=== PATIENT | male | born 1940 | race Caucasian/White ===

== ENCOUNTER 2019-11-04 14:40 | Outpatient (CLI) | payer MEDICARE, SELFPAY ==
--- NOTE | ~2019-11-04 | US_ITS ---
US scrotum doppler INDICATION: Evaluate for hernia. Testicular pain. TECHNIQUE: Testicular sonogram utilizing grayscale and color Doppler FINDINGS: The testes are normal in size and appearance. No focal lesions are seen. The right testes measures 4.2 x 3.4 x 2.5 cm centimeters, and the left testis measures 4.6 x 2.9 x 2.7 cm cm. There is normal vascular flow to both testes. There is a 1 cm left epididymal cyst. There is no varicocele or hydrocele. No evidence for hernia. IMPRESSION: 1. 1 cm left epididymal cyst. Reviewed, dictated and finalized at location A. UCTION SUPV
== END 2019-11-04 14:41 | disposition home or self-care (01) ==
PROVIDERS: PCP Family Medicine; Visit Provider Physician Assistant
DX: N50.3 Cyst of epididymis (principal); N50.819 Testicular pain, unspecified; R10.31 Right lower quadrant pain; K46.9 Unspecified abdominal hernia without obstruction or gangrene
CPT/HCPCS: 76870; 93976

== ENCOUNTER 2020-03-27 01:35 | Outpatient (CLI) | payer MEDICARE, SELFPAY ==
[2020-03-27 22:44] LABS: SARS-CoV-2 RNA PCR Negative
== END 2020-03-27 01:36 | disposition home or self-care (01) ==
LOC: ANHCOVIDDT 01:36
PROVIDERS: PCP Family Medicine; Visit Provider Internal Medicine Cardiovascular Disease
DX: Z01.812 Encounter for preprocedural laboratory examination (principal); Z11.59 Encounter for screening for other viral diseases
CPT/HCPCS: 87635; C9803; U0003

== ENCOUNTER 2020-04-03 01:21 | Outpatient (CLI) | payer MEDICARE, SELFPAY ==
[2020-04-03 19:25] LABS: SARS-CoV-2 RNA PCR Negative
== END 2020-04-03 01:22 | disposition home or self-care (01) ==
LOC: ANHCOVIDDT 01:21
PROVIDERS: PCP Family Medicine; Visit Provider Internal Medicine Cardiovascular Disease
DX: Z01.818 Encounter for other preprocedural examination (principal); Z11.59 Encounter for screening for other viral diseases
CPT/HCPCS: 87635; C9803; U0003

== ENCOUNTER 2020-04-05 05:30 | Day surgery (SDC) | payer MEDICARE, SELFPAY ==
[2020-03-28 18:45] VITALS: BMI 30.8
[2020-04-05] VITALS (7 sets, daily range): BP systolic 112–128; BP diastolic 69–85; PULSE 56–88; RESP 9–20; TEMP 36.4; O2SAT 97–100
--- NOTE | 2020-04-05 06:41 | ECG_ITS ---
Measurements Intervals [place] Rate: 87 P: MT: 0 QRS: -18 QRSD: 90 T: 30 QT: 364 QTc: 438 Interpretive Statements ATRIAL FIBRILLATION VENTRICULAR PREMATURE COMPLEXES ABNORMAL ECG Electronically Signed On 04-05-2020 8:13:07 CDT by Dioni Vaca D.O.
[2020-04-05 07:42] LABS: Anion Gap 12.1 mmol/L (7-16); Blood Urea Nitrogen 26 mg/dL (9-20); Carbon Dioxide 23 mmol/L (22-30); Chloride 107 mmol/L (98-107); Estimated CRCL calculation 55 ml/min; Estimated Glomerular Filt Rate 49; Glucose 105 mg/dL (75-110); Magnesium 2.1 mg/dL (1.6-2.3); Potassium 4.1 mmol/L (3.4-5.0); Sodium 138 mmol/L (137-145)
--- NOTE | 2020-04-05 08:18 | WPDMODSED ---
Moderate Sedation Note-Pt Data Patient Data Allergies Allergy/AdvReac Type Severity Reaction Status Date / Time No Known Allergies Allergy Verified 03/28/20 19:14 Home Medications Medication Instructions Recorded Confirmed Type amlodipine 10 mg tablet 10 mg PO HS 08/19/19 03/28/20 History lisinopril 40 mg tablet 40 mg PO HS 08/19/19 03/28/20 History meclizine 25 mg PO DAILY PRN 09/13/19 03/28/20 History omeprazole 40 mg PO BID 09/13/19 03/28/20 History nystatin 100,000 unit/gram topical 1 applic TOPICAL BID #60 gm 10/21/19 03/28/20 Rx powder apixaban 5 mg tablet 5 mg PO BID #60 tablet 11/03/19 03/28/20 Rx meloxicam 7.5 mg tablet 7.5 mg PO BID #180 tablet 12/27/19 03/28/20 Rx buspirone 15 mg tablet 22.5 mg PO BID #270 tablet 03/26/20 03/28/20 Rx amiodarone 200 mg PO BID 03/28/20 03/28/20 History quetiapine 50 mg PO BID 03/28/20 03/28/20 History Sedation/Anesthesia: No previous sedation/anesthesia problems (including family history). [facility] Past Medical History Medical History Arthritis MAINOR (generalized anxiety disorder) History of basal cell carcinoma Spastic colon Ulcer Surgical History Surgical History History of colonoscopy History of esophagogastroduodenoscopy History of partial colectomy For colon mass Family History Family History Sibling Patient's sister is in good health Father Family history of coronary artery disease Patient's father is in good health Mother Patient's mother is in good health Other Cerebrovascular accident Diabetes mellitus Hypertension Social History Social History Smoking status: Never smoker Second hand tobacco smoke exposure: No Alcohol intake: never Substance use: never Substance use type: does not use Living arrangements: with family Additional living arrangements comments: LIVES W/ Gender identity (if verbalized by the patient): Male Spiritual care concerns: No Mod Sed Physical Exam Physical Exam Pre Procedural Exam: Normal: Appearance, Eyes, Ears, Nose, Neck, Throat, Airway, Lungs, Heart Size, Heart Rate, Heart Rhythm, Neuro Exam, Abdomen, Liver, Kidneys, Spleen, Breasts, Genitalia, Extremities and Skin Hours since solid foods: 8 Hours since liquid intake: 8 Internal Medicine - PN: Obj Da Vital Signs Vital Signs: Vital Signs - 24 hr 04/05/20 07:27 04/05/20 08:10 04/05/20 08:15 Temperature 36.4 C Pulse Rate 85 88 79 Respiratory Rate 12 12 20 Blood Pressure 126/84 128/85 112/77 Pulse Oximetry 100 99 97 Labs CBC & Chem 7: 04/05/20 07:21 Labs: Laboratory Results - last 24 hr 04/05/20 07:21 Sodium 138 Potassium 4.1 Chloride 107 Carbon Dioxide 23 Anion Gap 12.1 BUN 26 H Creatinine 1.40 H Estim Creat Clear Calc 55 Estimated GFR 49 L Glucose 105 Calcium 9.0 Magnesium 2.1 ASA Classification/Sedation ASA Classification/Sedation ASA Class: I Emergent: No Risks: Risks, benefits and alternatives explained and patient/family accepted plan for sedation. Patient re-evaluated immediately prior to sedation.
--- NOTE | 2020-04-05 08:19 | WPDHPUPDATE1 ---
History and Physical Update Update Date/Time: 04/05/20 08:19 History and Physical has been reviewed, including an updated exam of the patient. There are NO changes in the patient's condition. Risks, benefits, and alternatives have been discussed and questions answered. Patient agrees to proceed with procedure.
--- NOTE | 2020-04-05 08:19 | WPDCARDVER ---
Cardioversion Cardioversion Date of procedure: 04/05/20 Procedure: Date of service 04/05/2020 cardioversion for atrial fibrillation Pre-op diagnosis: atrial fibrillation Post-op diagnosis: same Indications: symptomatic atrial fibrillation Description of procedure: after informed consent, cardioversion pads were applied to the chest in anteroposterior fashion. After that moderate sedation was administered and then 200 joules of synchronized electrical cardioversion was delivered successfully converting atrial fibrillation to sinus rhythm. Sedation: moderate sedation that started at 8:11 a.m. and ended at 8:15 a.m. total duration 5 minutes using 3 mg of Versed and 50 mcg of fentanyl. The registered nurse was alisson Garrett. Findings: atrial fibrillation converted with elective cardioversion to sinus rhythm Conclusion: successful conversion
--- NOTE | 2020-04-05 08:20 | ECG_ITS ---
Measurements Intervals [place] Rate: 61 P: 44 [place]: 192 QRS: -28 QRSD: 102 T: 30 QT: 423 QTc: 426 Interpretive Statements SINUS RHYTHM ATRIAL PREMATURE COMPLEX DELAYED PRECORDIAL R/S TRANSITION BORDERLINE ECG Electronically Signed On 04-05-2020 8:45:52 CDT by Dioni Vaca D.O.
--- NOTE | 2020-04-05 10:04 | SUR.PHASEII ---
Reviewed discharge instructions with patient . Patient verbalizes understanding,all questions answered. PIV removed. Patient escorted to vehicle via wheelchair.
== END 2020-04-05 10:05 | disposition home or self-care (01) ==
PROVIDERS: PCP Family Medicine; Visit Provider Internal Medicine Cardiovascular Disease
PROC: 5A2204Z Restoration of Cardiac Rhythm, Single (ICD-10-PCS; principal; 2020-04-05 08:00)
DX: I48.91 Unspecified atrial fibrillation (principal); F41.1 Generalized anxiety disorder; Z79.01 Long term (current) use of anticoagulants
CPT/HCPCS: 36415; 80048; 83735; 92960; 93005; J2250; J3010; J7040

== ENCOUNTER 2020-05-02 11:19 | Outpatient (CLI) | payer MEDICARE, SELFPAY ==
--- NOTE | ~2020-05-02 | XR_ITS ---
EXAMINATION: XR chest 2V EXAM DATE: 05/02/2020 12:29 INDICATION: Generalized weakness. TECHNIQUE: Frontal and lateral projections of the chest obtained and reviewed. Comparison is made to prior examination from 07/06/2018. FINDINGS: The lungs are clear. There are no pleural effusions. The cardiomediastinal silhouette is within normal limits. There is no pneumothorax suspected. Patient has diffuse idiopathic skeletal h yperostosis (DISH). There is aortic arteriosclerosis. IMPRESSION: No acute cardiopulmonary findings. Reviewed, dictated and finalized at location B.
[2020-05-02 12:03] LABS: Basophils Percent Auto 1.1 % (0.2-1.2); Eosinophils Absolute Auto 0.1 K/mm3 (0-0.3); Eosinophils Percent Auto 2.8 % (0-4.4); Hematocrit 46.5 % (42.0-52.0); Hemoglobin 16.2 g/dL (14.0-18.0); Immature Granulocyte Absolute 0.01 K/mm3 (0.00-0.031); Immature Granulocyte Percent A 0.3 % (0-0.5); Lymphocytes Absolute Auto 0.71 K/mm3 (0.9-3.2); Lymphocytes Percent Auto 19.9 % (18.3-44.2); Mean Corpuscular HGB Conc 34.8 g/dl (32-36); Mean Corpuscular Hemoglobin 32.1 pg (26-34); Mean Corpuscular Volume 92.1 fl (80-100); Mean Platelet Volume 9.1 fl (7.4-10.4); Monocytes Absolute Auto 0.4 K/mm3 (0.1-0.6); Monocytes Percent Auto 10.7 % (2.6-8.5); Neutrophils Absolute Auto 2.3 K/mm3 (1.3-6.7); Neutrophils Percent Auto 65.2 % (45.5-73.1); Platelet Count Result 148 k/mm3 (150-375); Red Blood Count 5.05 M/mm3 (4.6-6.20); Red Cell Distribution Width 12.6 % (11.5-14.5); White Blood Count 3.6 K/mm3 (4.5-10.0)
== END 2020-05-02 11:20 | disposition home or self-care (01) ==
LOC: ANHLAB 11:22
PROVIDERS: PCP Family Medicine; Visit Provider Physician Assistant
DX: R06.02 Shortness of breath (principal); R53.83 Other fatigue
CPT/HCPCS: 36415; 71046; 84443; 85025

== ENCOUNTER 2020-05-18 10:12 | Outpatient (CLI) | payer MEDICARE, SELFPAY ==
[2020-05-18 11:19] LABS: Basophils Percent Auto 0.9 % (0.2-1.2); Eosinophils Absolute Auto 0.1 K/mm3 (0-0.3); Eosinophils Percent Auto 2.4 % (0-4.4); Hemoglobin 15.7 g/dL (14.0-18.0); Immature Granulocyte Absolute 0.02 K/mm3 (0.00-0.031); Immature Granulocyte Percent A 0.6 % (0-0.5); Mean Corpuscular HGB Conc 34.1 g/dl (32-36); Mean Corpuscular Hemoglobin 31.8 pg (26-34); Mean Corpuscular Volume 93.3 fl (80-100); Mean Platelet Volume 9.5 fl (7.4-10.4); Monocytes Absolute Auto 0.3 K/mm3 (0.1-0.6); Monocytes Percent Auto 9.6 % (2.6-8.5); Neutrophils Absolute Auto 2.2 K/mm3 (1.3-6.7); Neutrophils Percent Auto 65.5 % (45.5-73.1); Platelet Count Result 153 k/mm3 (150-375); Red Blood Count 4.93 M/mm3 (4.6-6.20); Red Cell Distribution Width 12.9 % (11.5-14.5); White Blood Count 3.3 K/mm3 (4.5-10.0)
[2020-05-18 13:06] LABS: Iron 191 ug/dL (49-181)
[2020-05-18 13:11] LABS: Alanine Aminotransferase 21 U/L (4-50); Albumin Level 4.5 g/dL (3.5-5.1); Alkaline Phosphatase 63 U/L (38-126); Anion Gap 9 mmol/L (8-16); Aspartate Amino Transferase 29 U/L (17-59); Blood Urea Nitrogen 36 mg/dL (9-20); Calcium 9.2 mg/dL (8.4-10.2); Carbon Dioxide 26 mmol/L (22-30); Chloride 105 mmol/L (98-107); Estimated Glomerular Filt Rate 39; Glucose 96 mg/dL (75-110); Lactate Dehydrogenase 436 U/L (313-618); Sodium 140 mmol/L (137-145)
[2020-05-18 13:16] LABS: Percent Iron Saturation 55 % (20-50)
[2020-05-18 14:13] LABS: Folic Acid 12.9 ng/mL (2.76->20)
== END 2020-05-18 10:13 | disposition home or self-care (01) ==
PROVIDERS: PCP Family Medicine; Visit Provider Internal Medicine Hematology & Oncology
DX: D72.819 Decreased white blood cell count, unspecified (principal); R06.02 Shortness of breath; I12.9 Hypertensive chronic kidney disease with stage 1 through stage 4 chronic kidney disease, or unspecified chronic kidney disease; N18.3 Chronic kidney disease, stage 3 (moderate); I48.91 Unspecified atrial fibrillation
CPT/HCPCS: 36415; 80053; 82607; 82728; 82746; 83540; 83550; 83615; 84443; 85025; 86038

== ENCOUNTER 2020-05-24 09:21 | Outpatient (CLI) | payer MEDICARE, SELFPAY ==
--- NOTE | ~2020-05-24 | US_ITS ---
EXAMINATION: US abdomen complete EXAM DATE: 05/24/2020 10:03 INDICATION: Leukopenia. TECHNIQUE: Multiple grayscale and Doppler images of the complete abdomen were obtained (by a technolo gist who performed the scan) and subsequently reviewed. Comparison is made to prior examination from 11/08/2017. FINDINGS: The abdominal aorta is normal in caliber. Visualized portion IVC is patent. The pancreatic head a nd body are normal in appearance. The pancreatic tail is not visualized. The liver has normal echogenicity and contour. There are no focal liver lesions identified. There is no evidence of intrahepatic biliary duct dilation. Portal venous flow was seen in the hepatopedal , normal direction and has normal Doppler waveform. Common bile duct measures 4 mm, which is normal. The gallbladder wall is normal in thickness, with ex pected amount of distention. No sonographic evidence of pericholecystic fluid. There is a tiny gall bladder polyp requiring no further follow-up, and unchanged compared to prior study. No cholelithiasi s. Technologist performing exam reports patient did not demonstrate sonographic Scherer's sign. Plea se note that this sign is less reliable in patients who have received pain medication. Right kidney: There is normal contour and echogenicity. There is renal cortical thinning. It measures 11.3 x 5.5 x 5.0 centimeters. There are no focal renal lesions identified. There is no hydronep hrosis. Left kidney: There is normal contour and echogenicity. There is renal cortical thinning. It measures 12.9 x 6.7 x 6.1 centimeters. There are no focal renal lesions identified. There is no hydroneph rosis. The spleen measures 12.2 centimeters and is morphologically normal. IMPRESSION: 1. Bilateral renal cortical thinning, atrophy. 2. Tiny gallbladder polyp unchanged. Reviewed, dictated and finalized at location A.
== END 2020-05-24 09:22 | disposition home or self-care (01) ==
PROVIDERS: PCP Family Medicine; Visit Provider Internal Medicine Hematology & Oncology
DX: D72.819 Decreased white blood cell count, unspecified (principal); N28.89 Other specified disorders of kidney and ureter; K82.4 Cholesterolosis of gallbladder
CPT/HCPCS: 76700

== ENCOUNTER 2020-06-21 14:28 | Outpatient (CLI) | payer MEDICARE, SELFPAY ==
[2020-06-21 14:45] LABS: Basophils Percent Auto 0.8 % (0.2-1.2); Eosinophils Absolute Auto 0.1 K/mm3 (0-0.3); Eosinophils Percent Auto 1.3 % (0-4.4); Hematocrit 44.2 % (42.0-52.0); Hemoglobin 15.1 g/dL (14.0-18.0); Immature Granulocyte Absolute 0.02 K/mm3 (0.00-0.031); Immature Granulocyte Percent A 0.5 % (0-0.5); Lymphocytes Percent Auto 20.9 % (18.3-44.2); Mean Corpuscular HGB Conc 34.2 g/dl (32-36); Mean Corpuscular Hemoglobin 32.4 pg (26-34); Mean Corpuscular Volume 94.8 fl (80-100); Mean Platelet Volume 8.9 fl (7.4-10.4); Monocytes Absolute Auto 0.4 K/mm3 (0.1-0.6); Monocytes Percent Auto 10.7 % (2.6-8.5); Neutrophils Absolute Auto 2.5 K/mm3 (1.3-6.7); Neutrophils Percent Auto 65.8 % (45.5-73.1); Platelet Count Result 151 k/mm3 (150-375); Red Blood Count 4.66 M/mm3 (4.6-6.20); Red Cell Distribution Width 13.4 % (11.5-14.5); White Blood Count 3.8 K/mm3 (4.5-10.0)
[2020-06-21 16:57] LABS: Iron 157 ug/dL (49-181)
[2020-06-21 16:59] LABS: Alanine Aminotransferase 22 U/L (4-50); Albumin Level 4.4 g/dL (3.5-5.1); Alkaline Phosphatase 54 U/L (38-126); Anion Gap 9 mmol/L (8-16); Aspartate Amino Transferase 26 U/L (17-59); Bilirubin,Total 0.9 mg/dL (0.2-1.3); Blood Urea Nitrogen 43 mg/dL (9-20); Calcium 9.8 mg/dL (8.4-10.2); Carbon Dioxide 28 mmol/L (22-30); Chloride 107 mmol/L (98-107); Estimated Glomerular Filt Rate 39; Glucose 94 mg/dL (75-110); Lactate Dehydrogenase 397 U/L (313-618); Potassium 4.6 mmol/L (3.4-5.0); Sodium 144 mmol/L (137-145)
[2020-06-21 17:08] LABS: Percent Iron Saturation 47 % (20-50)
[2020-06-21 18:04] LABS: Folic Acid 16.5 ng/mL (2.76->20)
== END 2020-06-21 14:29 | disposition home or self-care (01) ==
PROVIDERS: PCP Family Medicine; Visit Provider Internal Medicine Hematology & Oncology
DX: D72.819 Decreased white blood cell count, unspecified (principal); D50.9 Iron deficiency anemia, unspecified; R53.83 Other fatigue
CPT/HCPCS: 36415; 80053; 82607; 82728; 82746; 83540; 83550; 83615; 84443; 85025; 86038

== ENCOUNTER → 2020-09-18 15:25 | Outpatient (CLI) | payer MEDICARE, SELFPAY ==
--- NOTE | ~2020-09-18 | XR_ITS ---
EXAMINATION: XR_CERV2-3V_CR EXAM DATE: 09/18/2020 15:48 INDICATION: Bilateral upper extremity weakness. TECHNIQUE: Cervical spine frontal, lateral, lateral swimmers, and open-mouth odontoid projections. There is no prior study for comparison. FINDINGS: There is mild to moderate diffuse cervical disc disease. Overall moderate cervical arthrop athy. The vertebral bodies are aligned in the AP dimension. There are no acute fractures identified. Paraspinal soft tissue is unremarkable. The odontoid process is intact. The lateral masses of C1 duncan e up with C2. Lung apices are unremarkable. IMPRESSION: 1. Mild to moderate cervical disc disease. 2. Overall moderate arthropathy. Reviewed, dictated and finalized at location A. RANCE ADMINISTRATIVE ASSISTANT
== END ==
PROVIDERS: PCP Family Medicine; Visit Provider Family Medicine
DX: R29.898 Other symptoms and signs involving the musculoskeletal system (principal); M50.80 Other cervical disc disorders, unspecified cervical region; M12.88 Other specific arthropathies, not elsewhere classified, other specified site
CPT/HCPCS: 72040

== ENCOUNTER → 2020-10-23 10:35 | Outpatient (CLI) | payer MEDICARE, SELFPAY ==
--- NOTE | ~2020-10-23 | XR_ITS ---
EXAMINATION: XR chest 2V DATE: 10/23/2020 10:55 INDICATION: Shortness of breath. TECHNIQUE: Frontal and lateral views of the chest were obtained on 3 radiographs. COMPARISON: Chest 2 views 05/02/2020, CT abdomen and pelvis 08/25/2019 FINDINGS: Calcified right lung nodules and calcified right hilar lymph nodes are consistent with old granulomatous disease. No pleural effusion or pneumothorax. The heart size is normal. IMPRESSION: 1. No acute cardiopulmonary disease. Reviewed, dictated and finalized at location A. ERER ASSEMBLY REPAIR
== END ==
PROVIDERS: PCP Family Medicine; Visit Provider Family Medicine
DX: R06.02 Shortness of breath (principal); I48.91 Unspecified atrial fibrillation
CPT/HCPCS: 71046

== ENCOUNTER 2020-12-13 13:27 | Outpatient (CLI) | payer MEDICARE, SELFPAY ==
--- NOTE | 2020-12-14 14:16 | P.PCNPFT_ITS ---
PFT Interpretation This is a pulmonary function test with pre and post-bronchodilator spirometry, plethysmography and diffusing capacity. The test was performed and results interpreted in accordance with the 2019 and 2005 ATS/ERS Task Force guidelines respectively using the Global Lung Function Initiative-2012 reference equations. Patient demonstrated good effort and c ooperation. Reproducibility criteria were met. The quality of the pre bronchodilator spirometry maneuver was Grade A and post bronchodilator spirometry maneuver was Grade A. Findings: Spirometry: There is decreased maximal expiratory airflow at low lung volumes with mildly concave expiratory flow tracing. The pre bronchodilator FVC is 3.91 L, 79% predicted. The pre bronchodilator FEV1 is 2.51 L, 70% predicted. The FEV1: FVC ratio 64%. The post bronchodilator FVC is 3.70 L, representing a 6% decrease. The post bronchodilator FEV1 is 2.62 L, representing a 5% increase. Plethysmography: The total lung capacity is 6.91 L, 81% predicted. Functional residual capacity is 3.47 L, 74% predicted. The residual volume is 3.00 L, 89% predicted. Diffusing capacity: The absolute diffusion capacity is 22.5, 84% predicted. The diffusing capacity corrected for alveolar volume is 3.57, 111% predicted. In comparison to a previous study on 11/01/2015 the post bronchodilator FVC is unchanged from 4.08 L to 3.70 L. The post bronchodilator FEV1 is unchanged from 2.85 L to 2.62 L. The total lung capacity is unchanged from 6.97 L to 6.91 L. The functional residual capacity is unchanged from 3.51 L to 3.47 L. The residual volume is unchanged from 2.62 L to 3.0 L. The diffusing capacity corrected for alveolar volume is unchanged from 3.82 to 3.57. Impression: There is a mild obstructive abnormality without significant improvement after inhaling a single dose of albuterol. The lung volumes are normal. The diffusing capacity is normal. When compared to the prior pulmonary function tests on 11/01/2015 there has been no significant change. PFT Procedure Performed PFT Procedure Performed Spirometry with Pre/Post Bronchodilator Plethysmography (Lung Vol) Diffusing Cap (DLCO)
== END 2020-12-13 13:28 | disposition home or self-care (01) ==
LOC: ANHPFT 13:28
PROVIDERS: PCP Family Medicine; Visit Provider Family Medicine
DX: R06.00 Dyspnea, unspecified (principal); R94.2 Abnormal results of pulmonary function studies
CPT/HCPCS: 94060; 94726; 94729

== ENCOUNTER → 2020-12-31 07:58 | Outpatient (CLI) | payer MEDICARE, SELFPAY ==
--- NOTE | ~2020-12-31 | CT_ITS ---
EXAMINATION: CT diagnostic chest wo con DATE: 12/31/2020 08:33 INDICATION: Dyspnea. TECHNIQUE: Computed tomography (CT) of the chest was performed without intravenous contrast. The dose -length product was 615.96 mGy-cm. Automated exposure control and iterative reconstruction technique were employed. COMPARISON: None FINDINGS: No endobronchial lesions. No pneumothorax. There is left lower lobe atelectasis. No focal a irspace consolidation. Calcified granuloma right lower lobe. No focal airspace consolidation to sugge st pneumonia. No suspicious pulmonary nodules or masses. There is atherosclerosis of the aorta and co ronary arteries. Small hiatal hernia. There are calcified granulomas of the spleen. No significant pl eural or pericardial effusion. There is mild thoracic spondylosis with accentuated kyphosis. No acute osseous abnormality. No focal lytic or blastic lesions. IMPRESSION: 1. No acute abnormality. No findings to account for patient's symptoms. Reviewed, dictated and finalized at location A.
== END ==
PROVIDERS: PCP Family Medicine; Visit Provider Family Medicine
DX: R06.00 Dyspnea, unspecified (principal)
CPT/HCPCS: 71250

== ENCOUNTER 2021-01-31 10:25 | Outpatient (CLI) | payer MEDICARE, SELFPAY ==
[2021-01-31 11:16] LABS: Prothrombin Time 13.3 Seconds (11.1-14.7)
[2021-01-31 11:17] LABS: Partial Thromboplastin Time 26.5 SECONDS (22.3-36.8)
[2021-01-31 11:33] LABS: Anion Gap 7 mmol/L (8-16); Blood Urea Nitrogen 36 mg/dL (9-20); Calcium 9.1 mg/dL (8.4-10.2); Carbon Dioxide 26 mmol/L (22-30); Chloride 107 mmol/L (98-107); Estimated Glomerular Filt Rate 39; Glucose 105 mg/dL (75-110); Potassium 4.6 mmol/L (3.4-5.0); Sodium 140 mmol/L (137-145)
== END 2021-01-31 10:26 | disposition home or self-care (01) ==
PROVIDERS: Anesthesiology; PCP Family Medicine; Visit Provider Urology
DX: Z01.818 Encounter for other preprocedural examination (principal); N40.0 Benign prostatic hyperplasia without lower urinary tract symptoms; N18.30 Chronic kidney disease, stage 3 unspecified
CPT/HCPCS: 36415; 80048; 85610; 85730; 87077; 87086; 87088

== ENCOUNTER 2021-02-07 10:30 | Outpatient (CLI) | payer MEDICARE, SELFPAY ==
--- NOTE | 2021-02-07 11:30 | NEURO_ITS ---
Impression: # Complains of numbness of lower extremities. # Fairly normal nerve conduction velocities with amplitude drop. # Needle/EMG not neurogenic. # Higher involvement needs to be ruled out. Nerve Conduction Studies Anti Sensory Summary Table Stim Site NR Peak (ms) P-T Amp (?V) Site1 Site2 Delta-P (ms) Dist (cm) Sung (m/s) Left Sup Fibular Anti Sensory (Ant Lat Mall) 14 cm 3.5 5.7 14 cm Ant Lat Mall 3.5 16.0 46 Right Sup Fibular Anti Sensory (Ant Lat Mall) 14 cm 4.7 5.2 14 cm Ant Lat Mall 4.7 16.0 34 Left Sural Anti Sensory (Lat Mall) Calf 3.9 4.2 Calf Lat Mall 3.9 16.0 41 Right Sural Anti Sensory (Lat Mall) Calf 4.0 16.8 Calf Lat Mall 4.0 16.0 40 Motor Summary Table Stim Site NR Onset (ms) O-P Amp (mV) Site1 Site2 Delta-0 (ms) Dist (cm) Sung (m/s) Left Peroneal Motor (Vastus Med) Ankle 4.6 0.3 Popit Ankle 12.1 46.0 38 Popit 16.7 0.3 Right Peroneal Motor (Vastus Med) Ankle 4.6 0.4 Popit Ankle 10.1 44.0 44 Popit 14.7 0.2 Left Tibial Motor (Abd Morales Brev) Ankle 5.2 0.6 Knee Ankle 11.3 49.0 43 Knee 16.5 0.6 Right Tibial Motor (Abd Morales Brev) Ankle 5.0 1.3 Knee Ankle 12.0 49.0 41 Knee 17.0 0.2 F Wave Studies NR F-Lat (ms) L-R F-Lat (ms) Left Peroneal (Mrkrs) (EDB) 53.33 1.64 Right Peroneal (Mrkrs) (EDB) 54.97 1.64 Left Tibial (Mrkrs) (Abd Hallucis) 52.40 1.40 Right Tibial (Mrkrs) (Abd Hallucis) 53.80 1.40 EMG Side Muscle Nerve Root Ins Act Fibs Amp Dur Recrt Comment Right AntTibialis Dp Br Fibular L4-5 Nml Nml Nml Nml Nml Right Gastroc Tibial S1-2 Nml Nml Nml Nml Nml Right Fibularis Long Sup Br Fibular L5-S1 Nml Nml Nml Nml Nml Right Flex Dig Long Tibial L5-S2 Nml Nml Nml Nml Nml Right Ext Dig Brev Dp Br Fibular L5, S1 Nml Nml Nml Nml Nml Left AntTibialis Dp Br Fibular L4-5 Nml Nml Nml Nml Nml Left Gastroc Tibial S1-2 Nml Nml Nml Nml Nml Left Fibularis Long Sup Br Fibular L5-S1 Nml Nml Nml Nml Nml Left Flex Dig Long Tibial L5-S2 Nml Nml Nml Nml Nml Left Ext Dig Brev Dp Br Fibular L5, S1 Nml Nml Nml Nml Nml Right QuadratusFem QuadFemoris L4-5, S1 Nml Nml Nml Nml Nml Left QuadratusFem QuadFemoris L4-5, S1 Nml Nml Nml Nml Nml MTDD
== END 2021-02-07 10:31 | disposition home or self-care (01) ==
LOC: ANHNEURO 10:31
PROVIDERS: PCP Family Medicine; Visit Provider Family Medicine
DX: G60.9 Hereditary and idiopathic neuropathy, unspecified (principal)
CPT/HCPCS: 95886; 95910

== ENCOUNTER 2021-02-13 11:11 | Outpatient (CLI) | payer MEDICARE, SELFPAY | END 2021-02-13 11:12 | disposition home or self-care (01) | LOC: ANHSURGERY 11:15 | PROVIDERS: PCP Family Medicine; Visit Provider Urology | DX: N13.8 Other obstructive and reflux uropathy (principal); N40.1 Benign prostatic hyperplasia with lower urinary tract symptoms | CPT/HCPCS: 87086; 87088 ==

== ENCOUNTER → 2021-02-16 01:04 | Outpatient (CLI) | payer MEDICARE, SELFPAY ==
[2021-02-16 19:38] LABS: SARS-CoV-2 RNA PCR Negative
== END ==
PROVIDERS: PCP Family Medicine; Visit Provider Urology
DX: Z01.812 Encounter for preprocedural laboratory examination (principal); Z20.822 Contact with and (suspected) exposure to COVID-19
CPT/HCPCS: C9803; U0003; U0005

== ENCOUNTER 2021-02-20 01:07 | Day surgery (SDC) | payer MEDICARE, SELFPAY ==
[2021-01-23 15:02] VITALS: BMI 29.7
--- NOTE | 2021-02-19 14:11 | WPDANESEPPF ---
Anes - Initial Pre Proc Eval Procedure: Operation Date: 02/20/21 12:00 Proposed Procedures p Urolift - Thony Pro MD Date/Time: 02/19/21 14:11 Surgeon: Thony Pro MD Pre Op Diagnosis: benign nodular prostatic hyperplasia Patient Data Age: 80 Gender: M Height: 1.96 m Weight: 113.63 kg Allergies Allergy/AdvReac Type Severity Reaction Status Date / Time No Known Allergies Allergy Verified 02/06/21 13:06 Home Medications Medication Instructions Recorded Confirmed Type meclizine 25 mg PO DAILY PRN 09/13/19 02/06/21 History apixaban 5 mg tablet 5 mg PO BID #60 tablet 11/03/19 02/06/21 Rx amiodarone 200 mg PO HS 03/28/20 02/06/21 History gabapentin 100 mg capsule 100 mg PO HS 09/18/20 02/06/21 History amlodipine 10 mg tablet 10 mg PO HS #90 tablet 11/23/20 02/06/21 Rx lisinopril 40 mg tablet 40 mg PO HS #90 tablet 12/28/20 02/06/21 Rx buspirone 15 mg tablet 15 mg PO QID PRN tablet 12/31/20 02/06/21 History meloxicam 7.5 mg PRN PRN 01/23/21 02/06/21 History quetiapine 50 mg BID 01/23/21 02/06/21 History zolpidem 10 mg tablet 10 mg PO QHS #30 tablet 02/04/21 02/06/21 Rx PMFSH Past Medical History Medical History Aortic atherosclerosis Arthritis CKD (chronic kidney disease), stage III DISH (diffuse idiopathic skeletal hyperostosis) MAINOR (generalized anxiety disorder) History of basal cell carcinoma Hypertensive chronic kidney disease with stage 1 through stage 4 chronic kidney disease, or unspecified chronic kidney disease Leukopenia SOB (shortness of breath) Spastic colon Ulcer Surgical History Surgical History History of colonoscopy History of esophagogastroduodenoscopy History of partial colectomy For colon mass Family History Family History Sibling Patient's sister is in good health Father Family history of coronary artery disease Patient's father is in good health Mother Patient's mother is in good health Other Cerebrovascular accident Diabetes mellitus Hypertension Social History Social History Smoking status: Never smoker Second hand tobacco smoke exposure: No Alcohol intake: never Substance use: never Substance use type: does not use Additional living arrangements comments: LIVES W/ Gender identity (if verbalized by the patient): Male Spiritual care concerns: No Anes - Eval Final PreProcedure Day of Procedure 02/19/21 14:11 Patient weight: overweight Heart: regular rate and rhythm Lungs: clear to auscultation and normal air movement Airway: Mallampati scale class II Neurological: alert and oriented Last oral intake: >/= 8 hours ASA classification: III Emergent: no Anesthetic plan: proceed Anesthesia type and monitoring: general LMA Informed Consent: The patient's anesthetic plan and its attendant risks and benefits were discussed with the patient/family/POA. Questions were solicited and answers provided to the satisfaction of the patient/family/POA.
[2021-02-20] VITALS (8 sets, daily range): BP systolic 139–166; BP diastolic 68–90; PULSE 50–75; RESP 14–20; TEMP 36.4; O2SAT 97–100; BMI 29.9
[2021-02-20] MEDS: LACTATED RINGERS 1,000 ML 30 ML IV CONT ×2 (10:35→14:45)
[2021-02-20] MEDS: ACETAMINOPHEN 500 MG TABLET 1000 MG PO (10:43)
--- NOTE | 2021-02-20 11:24 | WPDANESEPPF ---
Anes - Initial Pre Proc Eval Procedure: Operation Date: 02/20/21 12:00 Proposed Procedures p Urolift - Thony Pro MD Date/Time: 02/20/21 11:24 Surgeon: Thony Pro MD Pre Op Diagnosis: benign nodular prostatic hyperplasia Patient Data Age: 80 Gender: M Height: 6 ft 5 in Weight: 114.8 kg Last Vital Signs Temp 36.4 C L 02/20/21 10:25 Pulse 75 02/20/21 10:25 Resp 14 02/20/21 10:25 BP 144/68 H 02/20/21 10:25 Pulse Ox 100 02/20/21 10:25 Allergies Allergy/AdvReac Type Severity Reaction Status Date / Time No Known Allergies Allergy Verified 02/20/21 10:24 Home Medications Medication Instructions Recorded Confirmed Type meclizine 25 mg PO DAILY PRN 09/13/19 02/20/21 History apixaban 5 mg tablet 5 mg PO BID #60 tablet 11/03/19 02/20/21 Rx amiodarone 200 mg PO HS 03/28/20 02/20/21 History gabapentin 100 mg capsule 100 mg PO HS 09/18/20 02/20/21 History amlodipine 10 mg tablet 10 mg PO HS #90 tablet 11/23/20 02/20/21 Rx lisinopril 40 mg tablet 40 mg PO HS #90 tablet 12/28/20 02/20/21 Rx buspirone 15 mg tablet 15 mg PO QID PRN tablet 12/31/20 02/20/21 History meloxicam 7.5 mg PRN PRN 01/23/21 02/20/21 History quetiapine 50 mg BID 01/23/21 02/06/21 History zolpidem 10 mg tablet 10 mg PO QHS #30 tablet 02/04/21 02/06/21 Rx Patient hx anesthesia problems: none Family hx anesthesia problems: none PMFSH Past Medical History Medical History Aortic atherosclerosis Arthritis CKD (chronic kidney disease), stage III DISH (diffuse idiopathic skeletal hyperostosis) MAINOR (generalized anxiety disorder) History of basal cell carcinoma Hypertensive chronic kidney disease with stage 1 through stage 4 chronic kidney disease, or unspecified chronic kidney disease Leukopenia SOB (shortness of breath) Spastic colon Ulcer Surgical History Surgical History History of colonoscopy History of esophagogastroduodenoscopy History of partial colectomy For colon mass Family History Family History Sibling Patient's sister is in good health Father Family history of coronary artery disease Patient's father is in good health Mother Patient's mother is in good health Other Cerebrovascular accident Diabetes mellitus Hypertension Social History Social History Smoking status: Never smoker Second hand tobacco smoke exposure: No Alcohol intake: never Substance use: never Substance use type: does not use Living arrangements: with family Additional living arrangements comments: LIVES W/ Gender identity (if verbalized by the patient): Male Spiritual care concerns: No Anes - Eval Final PreProcedure Day of Procedure 02/20/21 11:24 Patient weight: obese Heart: regular rate and rhythm Lungs: clear to auscultation Airway: Mallampati scale class II Neurological: alert and oriented Last oral intake: >/= 8 hours ASA classification: III Emergent: no Anesthetic plan: proceed Anesthesia type and monitoring: general GIVS and standard monitoring Informed Consent: The patient's anesthetic plan and its attendant risks and benefits were discussed with the patient/family/POA. Questions were solicited and answers provided to the satisfaction of the patient/family/POA.
--- NOTE | 2021-02-20 12:07 | WPDHPUPDATE1 ---
History and Physical Update Update Date/Time: 02/20/21 12:07 History and Physical has been reviewed, including an updated exam of the patient. There are NO changes in the patient's condition. Risks, benefits, and alternatives have been discussed and questions answered. Patient agrees to proceed with procedure.
[2021-02-20] MEDS: ceFAZolin 2 GM/D5W 50 ML 2 GM/50 ML BAG IVPB (12:11)
[2021-02-20] MEDS: LIDOCAINE HCL 2% GEL UROJET 10 ML PKG MUCOUS MEM (12:32)
--- NOTE | 2021-02-20 13:09 | W.PM.PROC2 ---
Procedure Note - Detailed Date of Procedure 02/20/21 Pre-op Diagnosis benign nodular prostatic hyperplasia, overactive bladder Post-op Diagnosis same Procedure Performed Cystoscopy, prostatic urethral lift, bladder biopsy Surgeon Thony Pro MD Anesthesia MAC Description of Procedure Informed consent was obtained. Patient taken the operating. Given preoperative IV antibiotics. He was induced anesthesia. He was prepped and draped in normal sterile fashion. A rigid cystoscope was inserted the patient had bilobar prostatic hyperplasia, especially the bladder revealed trabeculations as well as multiple posterior wall hemangiomas. We then elected to perform the UroLift procedure. The 1st treatment site was 2cm proximal to the bladder neck. We introduced the device compressing of the lateral lobe by 25? we then fired the needle into the capsule of the prostate to plane the capsular tab. Then under tension we placed the urethral tab in good position. Identical procedure was performed on the contralateral side. With inspected with the visual obturator and there was some residual tissue and therefore placed 2 additional tabs at the verumontanum. This point inspected again with the rigid and flexible cystoscope the four tabs sat nicely with a nice anterior channel. At this point we introduced a 22 F cystoscope and performed a biopsy of a senior outside sales representative area of the posterior wall hemangioma. A cold cup biopsy was performed we then used electrocautery in order to achieve hemostasis. At this point the scope was removed the patient was then awakened to PACU in stable condition. Implants Urolift x 4 Pathology yes Complications No immediate complications Condition stable Disposition PACU
--- NOTE | 2021-02-20 15:55 | SUR.PHASEII ---
1525- called into OR room to inform surgeon of no void, low ammt shown with bladder scan. Order received to insert john. 1550- #16 fr john catheter inserted without resistance. balloon inflated. Pt states he has no pain and only light pressure.Scant amt of blood from penis around catheter. Return of dark blood , about 20ml. No urine seen. Secured to right thigh with leg band.
--- NOTE | 2021-02-20 17:06 | SUR.PHASEII ---
1700-Dr Pro here to see pt at 1640. Irrigated john with 200ml NaCl. Urine return around and in john. John discontinued by doctor. Pt voided blood tinged urine after john remova. updated again.
--- NOTE | 2021-02-20 17:08 | SUR.PHASEII ---
Pt getting dressed. Voided in bathroom prior to discharge.
== END 2021-02-20 17:00 | disposition home or self-care (01) ==
PROVIDERS: PCP Family Medicine; Visit Provider Urology
PROC: 0T7D8DZ Dilation of Urethra with Intraluminal Device, Via Natural or Artificial Opening Endoscopic (ICD-10-PCS; CPT 52441; principal; 2021-02-20 12:00)
DX: N40.1 Benign prostatic hyperplasia with lower urinary tract symptoms (principal); R35.0 Frequency of micturition; N32.81 Overactive bladder; N30.80 Other cystitis without hematuria; I12.9 Hypertensive chronic kidney disease with stage 1 through stage 4 chronic kidney disease, or unspecified chronic kidney disease; N18.30 Chronic kidney disease, stage 3 unspecified; M48.10 Ankylosing hyperostosis [Forestier], site unspecified; F41.1 Generalized anxiety disorder; I48.0 Paroxysmal atrial fibrillation; I25.10 Atherosclerotic heart disease of native coronary artery without angina pectoris; E66.9 Obesity, unspecified; Z68.30 Body mass index [BMI] 30.0-30.9, adult; Z79.01 Long term (current) use of anticoagulants
CPT/HCPCS: 52204; C9740; 88305; A9270; J0690; J2704; J3010; J7120; L8699

== ENCOUNTER 2021-03-14 08:25 | Outpatient (CLI) | payer MEDICARE, SELFPAY ==
--- NOTE | ~2021-03-14 | MR_ITS ---
EXAMINATION: MR cervical spine wo con DATE: 03/14/2021 09:35 INDICATION: Neck pain. TECHNIQUE: Magnetic resonance imaging (MRI) of the cervical spine was performed without intravenous c ontrast. Sequences included sagittal T2-weighted FSE, sagittal STIR FSE, sagittal T1-weighted FSE, ax ial MERGE, and axial T2-weighted FSE. COMPARISON: Cervical spine radiographs 09/18/2020 FINDINGS: There is 2 mm retrolisthesis of C3 on C4. Vertebral body heights are normal. There is moder ately decreased disc height at C2-C3 and C3-C4 and mildly decreased disc height at C5-C6 with endplat e remodeling. There is interbody fusion at C6-C7. The spinal cord signal intensity is normal. The fol lowing disc levels are specifically discussed: C2-C3: The disc is bulging. There is severe right and moderate left uncovertebral joint osteoarthriti s. There is moderate bilateral facet joint osteoarthritis. There is mild bilateral neural foraminal s tenosis. There is moderate central canal stenosis. C3-C4: The disc is bulging. There is severe bilateral uncovertebral joint osteoarthritis. There is se caro bilateral facet joint osteoarthritis. There is moderate bilateral neural foraminal stenosis. The re is severe central canal stenosis with ventral and dorsal indentation of the spinal cord. C4-C5: The disc is bulging. There is mild right and moderate left uncovertebral joint osteoarthritis. There is mild bilateral facet joint osteoarthritis. There is mild right and moderate left neural for aminal stenosis. There is mild central canal stenosis. C5-C6: The disc is bulging. There is severe bilateral uncovertebral joint osteoarthritis. There is mi ld right and moderate left facet joint osteoarthritis. There is mild right and severe left neural for aminal stenosis. There is mild central canal stenosis with ventral indentation of spinal cord. C6-C7: There is severe right and moderate left uncovertebral joint hypertrophy. There is no facet joshua nt osteoarthritis. There is moderate right and mild left neural foraminal stenosis. There is no centr al canal stenosis. C7-T1: The disc does not extend beyond the endplate margin. There is no uncovertebral joint osteoarth ritis. There is severe bilateral facet joint osteoarthritis. There is mild bilateral neural foraminal stenosis. There is no central canal stenosis. IMPRESSION: 1. Severe cervical spondylosis. Reviewed, dictated and finalized at location A.
== END 2021-03-14 08:26 | disposition home or self-care (01) ==
LOC: ANHIMG 08:27
PROVIDERS: PCP Family Medicine; Visit Provider Family Medicine
DX: M54.2 Cervicalgia (principal); G62.9 Polyneuropathy, unspecified; M47.812 Spondylosis without myelopathy or radiculopathy, cervical region
CPT/HCPCS: 72141

== ENCOUNTER → 2021-07-23 14:01 | Outpatient (CLI) | payer MEDICARE, SELFPAY ==
--- NOTE | ~2021-07-23 | CT_ITS ---
EXAMINATION: CT abdomen pelvis wo/w con DATE: 07/23/2021 14:53 INDICATION: Gross hematuria TECHNIQUE: Computed tomography (CT) of the abdomen and pelvis was performed without intravenous contr ast. CT of the abdomen and pelvis was then performed with a total of 130 mL Omnipaque 350 intravenous contrast using a double-bolus technique for simultaneous opacification of the renal parenchyma and r enal collecting system. The dose-length product (DLP) was 2276.62 mGy-cm. Automated exposure control and iterative reconstruction technique were employed. COMPARISON: 08/25/2019 FINDINGS: Minimal dependent atelectasis is present in the lung bases. The heart size is normal. Punct ate calcifications in an otherwise normal spleen likely represent healed granulomatous disease. The l iver, pancreas, gallbladder, and adrenal glands are normal. Cysts of the kidneys measure up to 1.4 cm on the right. There is no hydronephrosis or hydroureter. No suspicious renal or urothelial lesion is identified. There is circumferential wall thickening of the urinary bladder. A tiny focus of intralu kaye gas is present in the bladder. There is prostatomegaly. Metallic densities in the prostate like ly reflect brachytherapy seeds. There is no free intraperitoneal gas or evidence of bowel obstruction . No pathologically enlarged abdominal or pelvic lymph nodes are identified. There is calcified ather osclerosis of the aorta and many of the other arteries. There are changes of right hemicolectomy. The re is severe lower lumbar spondylosis. IMPRESSION: 1. Circumferential wall thickening of the urinary bladder which could reflect cystitis or chronic out let obstruction. Tiny focus of gas in the bladder may reflect catheterization or recent instrumentati on, Reviewed, dictated and finalized at location B. L EXAMINER IMPRESSION: 1. Circumferential wall thickening of the urinary bladder which could reflect c ystitis or chronic outlet obstruction. Tiny focus of gas in the bladder may ref lect catheterization or recent instrumentation,
[2021-07-23 14:25] LABS: Estimated Glomerular Filt Rate 39
== END ==
PROVIDERS: PCP Family Medicine; Visit Provider Urology
DX: R31.0 Gross hematuria (principal); R93.41 Abnormal radiologic findings on diagnostic imaging of renal pelvis, ureter, or bladder
CPT/HCPCS: 74178; Q9967

== ENCOUNTER → 2022-05-14 09:06 | Outpatient (CLI) | payer MEDICARE, SELFPAY ==
--- NOTE | ~2022-05-14 | XR_ITS ---
XR knee RT 3V DATE: 05/14/2022 09:40 INDICATION: Right knee pain TECHNIQUE: 3 views COMPARISON: October 28, 2017 right knee FINDINGS: There is prominent loss of medial compartment joint space height. There is periarticular sp urring of the medial tibial plateau. There is mild periarticular spurring of the patella. No fracture or dislocation or joint effusion. No periosteal reaction or bone destruction. No radiopaq ue intra-articular loose body or chondrocalcinosis. 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
--- NOTE | ~2022-05-14 | XR_ITS ---
XR knee LT 3V DATE: 05/14/2022 09:40 INDICATION: Left knee pain TECHNIQUE: 3 views COMPARISON: October 28, 2017 left knee FINDINGS: Severe medial compartment joint space narrowing. Mild particular spurring of the patella. Enthesopathy of the patella at the insertions of the quadriceps and particularly patellar tendons. No fracture or dislocation is detected. Joint effusion is not evident. No periosteal reaction or bone destruction. No radiopaque intra-articular loose body or chondrocalcinosis is noted. 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
== END ==
PROVIDERS: PCP Family Medicine; Visit Provider Nurse Practitioner Family
DX: M25.562 Pain in left knee (principal); M25.561 Pain in right knee; M17.0 Bilateral primary osteoarthritis of knee
CPT/HCPCS: 73562

== ENCOUNTER → 2022-05-29 14:55 | Outpatient (CLI) | payer MEDICARE, SELFPAY ==
--- NOTE | ~2022-05-29 | XR_ITS ---
EXAMINATION: XR ankle LT 2V DATE: 05/29/2022 15:23 INDICATION: Left ankle pain. TECHNIQUE: 2 views of left ankle were obtained. COMPARISON: None. FINDINGS: Bone alignment is normal. No fracture. There is mild midfoot osteoarthritis. There is an en thesophyte at plantar aspect of calcaneal tuberosity. There is ankle soft tissue swelling. IMPRESSION: 1. Mild midfoot osteoarthritis. Reviewed, dictated and finalized at location A.
--- NOTE | ~2022-05-29 | XR_ITS ---
EXAMINATION: XR foot RT 2V DATE: 05/29/2022 15:23 INDICATION: Right foot pain. TECHNIQUE: 2 views of right foot were obtained. COMPARISON: None. FINDINGS: Bone alignment is normal. No fracture. There is mild osteoarthritis of fourth proximal inte rphalangeal joint and talonavicular joint. There are enthesophytes at the posterior and plantar aspec ts of calcaneal tuberosity. IMPRESSION: 1. Mild particular osteoarthritis. Reviewed, dictated and finalized at location A.
--- NOTE | ~2022-05-29 | XR_ITS ---
EXAMINATION: XR foot LT min 3V DATE: 05/29/2022 15:23 INDICATION: Left foot pain. TECHNIQUE: 4 views of left foot were obtained. COMPARISON: None. FINDINGS: Bone alignment is normal. No fracture. There is mild osteoarthritis of first metatarsophala ngeal joint and some of the midfoot joints. There is an enthesophyte at the plantar aspect of calcane al tuberosity. IMPRESSION: 1. Mild polyarticular osteoarthritis. Reviewed, dictated and finalized at location A.
--- NOTE | ~2022-05-29 | XR_ITS ---
EXAMINATION: XR ankle RT 2V DATE: 05/29/2022 15:23 INDICATION: Right ankle pain. TECHNIQUE: 2 views of right ankle were obtained. COMPARISON: None. FINDINGS: Bone alignment is normal. No fracture. There is mild midfoot osteoarthritis. There are enth esophytes at the posterior and plantar aspects of calcaneal tuberosity. Ankle soft tissue swelling is noted. IMPRESSION: 1. Mild midfoot osteoarthritis. Reviewed, dictated and finalized at location A.
== END ==
PROVIDERS: PCP Family Medicine; Visit Provider Nurse Practitioner Family
DX: M19.072 Primary osteoarthritis, left ankle and foot (principal); M79.89 Other specified soft tissue disorders; M19.071 Primary osteoarthritis, right ankle and foot; M77.32 Calcaneal spur, left foot; M77.31 Calcaneal spur, right foot
CPT/HCPCS: 73600; 73620; 73630

== ENCOUNTER 2023-01-30 11:43 | Outpatient (CLI) | payer MEDICARE, SELFPAY ==
--- NOTE | ~2023-01-30 | CT_ITS ---
EXAMINATION: CT brain wo con DATE: 01/30/2023 12:05 INDICATION: Left lower extremity weakness. TECHNIQUE: Computed tomography (CT) of the head was performed without intravenous contrast. The mA wa s adjusted according to patient size. Iterative reconstruction technique was employed. The dose-lengt h product was 681.00 mGy-cm. COMPARISON: Head CT 03/06/2017 FINDINGS: There are scattered areas of low attenuation in the cerebral white matter. There is no intr acranial hemorrhage, acute infarction, or abnormal intracranial mass lesion. The ventricles are yenifer l in size. There are likely changes of ocular lens replacement surgeries. The paranasal sinuses are c lear. The mastoid air cells are normal. There is cerumen in left external auditory canal. IMPRESSION: 1. Mild nonspecific cerebral white matter disease, which likely represents chronic small vessel ische tiana disease. Reviewed, dictated and finalized at location A. IMPRESSION: 1. Mild nonspecific cerebral white matter disease, which likely represents outpatient surgery rn cuauhtemoc small vessel ischemic disease.
== END 2023-01-30 11:44 | disposition home or self-care (01) ==
PROVIDERS: PCP Family Medicine; Visit Provider Nurse Practitioner Family
DX: R53.1 Weakness (principal); R93.0 Abnormal findings on diagnostic imaging of skull and head, not elsewhere classified
CPT/HCPCS: 70450

== ENCOUNTER 2023-04-07 18:36 | Observation (INO) | payer MEDICARE, SELFPAY ==
[2023-04-07] VITALS (27 sets, daily range): BP systolic 140–160; BP diastolic 86–119; PULSE 87–122; RESP 10–18; TEMP 36.9; O2SAT 98–100
--- NOTE | ~2023-04-07 | MR_ITS ---
EXAMINATION: MR brain/brain stem wo con DATE: 04/10/2023 15:01 INDICATION: Weakness TECHNIQUE: Magnetic resonance imaging (MRI) of the brain and brainstem was performed without intraven ous contrast. Sequences included sagittal and axial T1-weighted SE, axial diffusion-weighted FS SE, a xial T2*-weighted GRE, axial T2-weighted FLAIR, and axial T2-weighted FSE. Apparent diffusion coeffi cient (ADC) maps were created. COMPARISON: Head CT dated 04/07/2023 FINDINGS: There are no areas of restricted diffusion to suggest acute infarction. No intracranial hemorrhage or abnormal intracranial mass lesion. There are scattered areas of nonspecific increased T2-weighted si gnal intensity in the cerebral white matter, predominantly involving the deep and periventricular whi te matter which is within normal limits for age. There are no intraparenchymal signal abnormalities s een on the other pulse sequences. Symmetric prominence of the sulci and ventricles consistent with mi ld to moderate age-appropriate diffuse cerebral volume loss. There are no abnormal extra-axial fluid collections. Flow voids are seen in the cerebral arteries on the T2-weighted sequences consistent wit h their expected patency. Changes of bilateral intraocular lens replacement. Visualized orbits and so ft tissues are unremarkable. IMPRESSION: 1. Normal aging brain with mild to moderate diffuse volume loss and scattered calcific white matter T 2 hyperintensity consistent with chronic small vessel ischemic disease. No acute intracranial process . Reviewed, dictated and finalized at location A. IMPRESSION: 1. Normal aging brain with mild to moderate diffuse volume loss and scattered c alcific white matter T2 hyperintensity consistent with chronic small vessel isc hemic disease. No acute intracranial process.
--- NOTE | ~2023-04-07 | MR_ITS ---
EXAMINATION: MR lumbar spine wo con DATE: 04/10/2023 15:06 INDICATION: Weakness TECHNIQUE: Magnetic resonance imaging (MRI) of the lumbar spine was performed without intravenous con trast. Sequences included sagittal T2-weighted FSE, sagittal T2-weighted FS FSE, sagittal T1-weighted FSE, and axial T2-weighted FSE. COMPARISON: None FINDINGS: 5 mm retrolisthesis L5 on S1. Alignment is otherwise normal. Vertebral body heights are normal. Small Schmorl's nodes along the right side of the inferior endplate of L4. There is associated mild to mod erate right-sided predominant disc height loss. Additional moderate disc height loss at L5-S1. Mild d isc height loss at L3-L4. Normal marrow signal. The conus medullaris terminates at L1-L2. There is n ormal signal in the caudal spinal cord. Paravertebral soft tissues are unremarkable. The following di sc levels are specifically discussed: T12-L1: Small central disc protrusion. There is moderate bilateral facet joint osteoarthritis. There is no neural foraminal stenosis. There is no central canal stenosis. L1-L2: Mild diffuse disc bulge. There is mild right and mild to moderate left facet joint osteoarthri tis. There is mild bilateral neural foraminal stenosis. There is mild central canal stenosis. L2-L3: Small bilateral foraminal zone disc protrusions. There is moderate left and mild to moderate r ight facet joint osteoarthritis. There is mild bilateral neural foraminal stenosis. There is no centr al canal stenosis. L3-L4: Disc is bulging. There is mild right and moderate left facet joint osteoarthritis. There is mi ld left and moderate right neural foraminal stenosis. There is mild central canal stenosis. L4-L5: Disc is mildly bulging with annular fissures at the bilateral foraminal zones. There is hypert rophy of the ligamentum flavum. There is moderate bilateral facet joint osteoarthritis. There is mode rate bilateral neural foraminal stenosis. There is minimal central canal stenosis with narrowing of t he left and right lateral recesses. L5-S1: The disc does not extend beyond the more posterior L5 endplate margin. There is mild bilateral facet joint osteoarthritis. There is moderate bilateral neural foraminal stenosis. There is no centr al canal stenosis. There is mild narrowing of the left and right lateral recesses. IMPRESSION: 1. Moderate lower lumbar predominant spondylosis. Reviewed, dictated and finalized at location A.
--- NOTE | ~2023-04-07 | XR_ITS ---
EXAMINATION: XR chest 2V 04/07/2023 19:56 INDICATION: Weakness. Dyspnea. PROCEDURE: 2 view chest COMPARISON: Comparison to multiple prior studies sequentially, with oldest reviewed study dated 09/27. FINDINGS: The lungs are clear. The cardiomediastinal silhouette is within normal limits. There are no pleural effusions. There is no pneumothorax suspected. IMPRESSION: 1: NO ACUTE CARDIOPULMONARY DISEASE. Reviewed, dictated and finalized at location A.
--- NOTE | ~2023-04-07 | CT_ITS ---
Noncontrast CT scan of the thoracolumbar spine CLINICAL HISTORY: Weakness TECHNIQUE: Axial noncontrast imaging of the thoracic and lumbar spine was performed. Sagittal and cor onal reformatted images were constructed. Dose reduction technique was used on this scan by utilizing automated exposure control and iterative reconstruction technique. The dose-length product (DLP) was 2331.92 mGy-cm. Thoracic spine findings: There is mild compression deformity of T6, probably chronic. No subluxation evident. There is moderate to advanced degenerative disc narrowing at T6-T7. Remaining disc spaces ar e preserved. There is extensive DISH of the mid to lower thoracic spine. No significant disc bulge or herniation seen at any thoracic level. No definite spinal canal stenosis or cord compression. Paravertebral soft tissues are unremarkable. Lumbar spine findings: There is no fracture identified. There is minimal grade 1 retrolisthesis of L5 over S1. At L1-L2, there is minimal disc bulge and minimal facet joint degenerative change. No central canal s tenosis. There is probable moderate bilateral neural foraminal narrowing. At L2-L3, there is minimal disc bulge and mild facet arthropathy. No bisi central canal stenosis. Th ere is probable minimal bilateral neural foraminal narrowing. At L3-L4, there is disc bulge and facet arthropathy, resulting in moderate to severe central canal st enosis/thecal sac compression. There is moderate bilateral neural foraminal narrowing. At L4-L5, there is disc bulge and facet arthropathy, resulting in moderate central canal stenosis/the miguel sac compression. There is moderate to advanced bilateral neural foraminal narrowing. At L5-S1, there is disc bulge and mild facet arthropathy. No bisi central canal stenosis. There is s evere left neural foraminal narrowing, and moderate to severe right neural foraminal narrowing. Paravertebral soft tissues are unremarkable. Impression: Chronic compression deformity of T6. Minimal grade 1 retrolisthesis of L5 over S1. Moderate to advanced degenerative spondylosis in the lumbar spine, as detailed above. Reviewed, dictated and finalized at location M. Impression: Chronic compression deformity of T6. Minimal grade 1 retrolisthesis of L5 over S1. Moderate to advanced degenerative spondylosis in the lumbar spine, as detailed above.
--- NOTE | ~2023-04-07 | CT_ITS ---
EXAMINATION: CT brain wo/w con DATE: 04/07/2023 21:13 INDICATION: Worsening. Weakness. TECHNIQUE: Computed tomography (CT) of the head was performed without intravenous contrast. The dose- length product was 1513.33 mGy-cm. Automated exposure control and iterative reconstruction technique were employed. COMPARISON: CT dated 01/30/2023 FINDINGS: Generalized atrophy. There are scattered mild periventricular and subcortical white matter changes, most likely related to small vessel ischemic disease (microangiopathy). No ventriculomegaly or midline shift. There is intracranial atherosclerosis. No acute infarction, hemorrhage, mass or mas s effect. Basilar cisterns are patent. Paranasal sinus and mastoids are pneumatized. No depressed sku ll fractures. IMPRESSION: 1. No acute intracranial abnormality. Reviewed, dictated and finalized at location A.
--- NOTE | ~2023-04-07 | US_ITS ---
US venous doppler [facility] DATE: 04/08/2023 10:56 INDICATION: Deep venous thrombosis TECHNIQUE: Real-time and color flow imaging and Doppler analysis of the veins of the lower extremitie s COMPARISON: None FINDINGS: Thrombus is identified within the right common femoral and bilateral femoral veins, with in complete compression of the vessels. Otherwise there is spontaneous and phasic flow and normal augmentation and color flow signal and norm al compression of the deep veins of the lower extremities. The greater saphenous veins are patent. IMPRESSION: Deep venous thrombosis of right common femoral and bilateral femoral veins Reviewed, dictated and finalized at Location A. Reviewed, dictated and finalized at location B. IMPRESSION: Deep venous thrombosis of right common femoral and bilateral femora l veins
--- NOTE | ~2023-04-07 | XR_ITS ---
[id number] 04/10/2023 14:07 Indication: Left knee pain Procedure: 2 views left knee Comparison: No prior studies for comparison. Findings: There is moderate osteoarthritis of the left knee, most advanced in the medial compartment. No fracture, subluxation or dislocation. No significant joint effusion. Impression: 1: Moderate osteoarthritis of the left knee. Reviewed, dictated and finalized at location A. Impression: 1: Moderate osteoarthritis of the left knee.
--- NOTE | 2023-04-07 19:13 | ECG_ITS ---
Measurements Intervals [place] Rate: 113 P: MN: 0 QRS: -26 QRSD: 99 T: 41 QT: 290 QTc: 399 Interpretive Statements ATRIAL FIBRILLATION WITH RAPID VENTRICULAR RESPONSE VENTRICULAR PREMATURE COMPLEX ABNORMAL ECG COMPARED TO ECG 04/05/2020 08:25:42 ATRIAL FIBRILLATION NOW PRESENT Electronically Signed On 04-07-2023 20:05:29 CDT by Dioni Vaca D.O.
--- NOTE | 2023-04-07 19:14 | ED.GENADULT ---
HPI - General Adult General Chief complaint: Weakness Stated complaint: weakness s/p fall Time Seen by Provider: 04/07/23 19:05 History of Present Illness HPI narrative: 82M h/o afib on eliquis, baseline upper extremity tremor presented with weakness. Per patient, he has been having weakness for months, lower extermity worse than other places. Today it worsened to the point he couldn't walk, so presented to the ED for further evaluation. He denied fevers/chills, chest pain, shortness of breath, back pain, urinary/fecal incontinence, saddle anesthesia, dysuria, diarrhea, sick contacts, cough, headache. Related Data Home Medications Medication Instructions Recorded Confirmed meclizine 25 mg tablet 25 mg PO DAILY PRN Dizziness 09/13/19 02/27/23 amiodarone 200 mg tablet 200 mg PO HS 03/28/20 02/27/23 amlodipine 10 mg tablet mg 02/03/23 02/27/23 buspirone 15 mg tablet 22.5 mg PO BID PRN Anxiety 02/03/23 02/27/23 gabapentin 600 mg tablet 600 mg PO DAILY 02/03/23 02/27/23 Allergies Allergy/AdvReac Type Severity Reaction Status Date / Time No Known Allergies Allergy Verified 02/20/23 13:43 FOR[facility] Past Medical History Medical History Aortic atherosclerosis Arthritis CKD (chronic kidney disease), stage III Degenerative joint disease of knee DISH (diffuse idiopathic skeletal hyperostosis) MAINOR (generalized anxiety disorder) History of basal cell carcinoma Hypertensive chronic kidney disease with stage 1 through stage 4 chronic kidney disease, or unspecified chronic kidney disease Left knee DJD Leukopenia Right knee DJD SOB (shortness of breath) Spastic colon Ulcer Surgical History Surgical History History of colonoscopy History of esophagogastroduodenoscopy History of partial colectomy For colon mass Family History Family History Sibling Patient's sister is in good health Father Family history of coronary artery disease Patient's father is in good health Mother Patient's mother is in good health Other Cerebrovascular accident Diabetes mellitus Hypertension Social History Social History Smoking status: Unknown if ever smoked Second hand tobacco smoke exposure: No Additional smoking assessment comments: denies use of tobacco Alcohol intake: unknown Substance use: unknown Substance use type: does not use Other substance usage details: denies alcohol and substance use Living arrangements: with family Additional living arrangements comments: LIVES W/ Occupation/Education: retired Gender identity (if verbalized by the patient): Male Sexual Orientation (if Verbalized by the Patient): Straight or Heterosexual Spiritual care concerns: No Exam Narrative: General: Alert, calm and cooperative, no acute distress, phonating, sitting comfortably during visit HEENT: Pupils equal round and reactive to light, extra ocular movements intact, no conjunctival injection, head atraumatic, neck supple without meningismus Cardiovascular: Regular rate and rhythm, no visible jugular venous distension Respiratory: Lungs clear to auscultation bilaterally, no wheezing/rales/rhonchi Abdominal: soft, non-tender, non-distended, no guarding, no rebound/peritoneal signs, no costovertebral tenderness to palpation Back: no midline tenderness to palpation, no step offs Extremities: No edema, palpable peripheral pulses, warm, well perfused, no tenderness to bilateral calves Neurological: Alert, moving all extremities symmetrically, unable to stand up from bed, 4/5 strength bilaterally lower extermities Course Vital Signs Vital signs: Vital Signs Temperature 98.4 F 04/07/23 18:35 Pulse Rate 116 H 04/07/23 18:35 Respiratory Rate 12 04/07/23 18:35 Blood Pressure 153/96
[2023-04-07] MEDS: LACTATED RINGERS 1,000 ML 999 ML IV CONT (19:36)
[2023-04-07 19:38] LABS: Basophils Absolute Auto 0.1 K/mm3 (0.0-0.1); Basophils Percent Auto 0.8 % (0.2-1.2); Eosinophils Absolute Auto 0.1 K/mm3 (0-0.3); Eosinophils Percent Auto 0.7 % (0-4.4); Hematocrit 45.6 % (42.0-52.0); Hemoglobin 15.1 g/dL (14.0-18.0); Immature Granulocyte Absolute 0.06 K/mm3 (0.00-0.031); Immature Granulocyte Percent A 0.8 % (0-0.5); Lymphocytes Absolute Auto 0.53 K/mm3 (0.9-3.2); Lymphocytes Percent Auto 7.4 % (18.3-44.2); Mean Corpuscular HGB Conc 33.1 g/dl (32-36); Mean Corpuscular Hemoglobin 33.6 pg (26-34); Mean Corpuscular Volume 101.6 fl (80-100); Mean Platelet Volume 8.9 fl (7.4-10.4); Monocytes Absolute Auto 0.6 K/mm3 (0.1-0.6); Monocytes Percent Auto 7.8 % (2.6-8.5); Neutrophils Absolute Auto 5.9 K/mm3 (1.3-6.7); Neutrophils Percent Auto 82.5 % (45.5-73.1); Platelet Count Result 127 k/mm3 (150-375); Red Blood Count 4.49 M/mm3 (4.6-6.20); Red Cell Distribution Width 12.5 % (11.5-14.5); White Blood Count 7.1 K/mm3 (4.5-10.0)
[2023-04-07 19:52] LABS: Lactic Acid Reflex 1.4 mmol/L (0.7-2.0)
[2023-04-07 20:03] LABS: NT Pro B Type Natriuretic Pept 989 pg/mL (19.9-100); Troponin I < 0.012 ng/mL (0.000-0.034)
[2023-04-07 21:03] LABS: Estimated CRCL calculation 43 ml/min; Estimated Glomerular Filt Rate 45
[2023-04-07 23:51] LABS: Alanine Aminotransferase 19 U/L (6-50); Albumin Level 3.5 g/dL (3.5-5.1); Alkaline Phosphatase 57 U/L (38-126); Anion Gap 4 mmol/L (8-16); Aspartate Amino Transferase 24 U/L (17-59); Bilirubin,Total 0.4 mg/dL (0.2-1.3); Blood Urea Nitrogen 25 mg/dL (9-20); Calcium 8.6 mg/dL (8.4-10.2); Carbon Dioxide 31 mmol/L (22-30); Chloride 103 mmol/L (98-107); Estimated CRCL calculation 49 ml/min; Estimated Glomerular Filt Rate 53; Glucose 98 mg/dL (65-110); Lipase 124 U/L (23-300); Potassium 3.9 mmol/L (3.4-5.0); Sodium 138 mmol/L (137-145)
[2023-04-08] VITALS (21 sets, daily range): BP systolic 150–169; BP diastolic 82–131; PULSE 84–111; RESP 12–23; TEMP 36.3–36.5; O2SAT 97–100; BMI 27.0
--- NOTE | 2023-04-08 | ECHO_ITS ---
Patient Info Name: Abdias Hills Age: 82 years : 1940 Gender: Male Ht: 77 in Wt: 250 lbs BSA: 2.50 m2 HR: 91 bpm BP: 155 / 100 mmHg Heart Rhythm: Atrial Fibrillation Technical Quality: Good Exam Date: 04/08/2023 11:19 AM Exam Location: [facility] Pulmonary Patient Status: Outpatient Admit Date: 04/08/2023 Staff Ordering Physician: Remberto Arriaga MD Vp [employer] Partnership[employer]: Nicolasa Rushing RDCS Attending Provider: Remberto Arriaga MD Referring Physician: Corina MAY; Exam Type: CA echo doppler color flow Study Info Indications - weakness Complete two-dimensional, color flow and Doppler transthoracic echocardiogram is performed. Summary 1. Complete two-dimensional, color flow and Doppler transthoracic echocardiogram is performed. 2. Left ventricular chamber dimension is normal. 3. Left ventricular systolic function is normal, estimated at 55-60%. 4. There is mildly increased left ventricular wall thickness. 5. The left ventricular diastolic function is indeterminate. 6. Left atrial chamber dimension is mildly enlarged. 7. There is no aortic valve stenosis. 8. There is mild mitral valve regurgitation. 9. There is trace tricuspid valve regurgitation. 10. No pulmonary hypertension, estimated pulmonary arterial systolic pressure is 23 mmHg. Left Ventricle Left ventricular chamber dimension is normal. Left ventricular systolic function is normal, estimated at 55-60%. There is mildly increased left ventricular wall thickness. The left ventricular diastolic function is indeterminate. Right Ventricle Right ventricular chamber dimension is normal. Right ventricular systolic function is reduced. TAPSE 1.5. Left Atria Left atrial chamber dimension is mildly enlarged. Right Atria Right atrial chamber dimension is normal. Aortic Valve The aortic valve is trileaflet. There is mild aortic valve sclerosis. There is no aortic valve stenosis. There is no aortic valve regurgitation. Pulmonic Valve The pulmonic valve is not well visualized. There is trace pulmonic regurgitation. Mitral Valve The mitral valve has thickened leaflets. There is mild mitral valve regurgitation. The mitral valve annulus is mildly calcified. Tricuspid Valve The tricuspid valve leaflets are normal. There is trace tricuspid valve regurgitation. No pulmonary hypertension, estimated pulmonary arterial systolic pressure is 23 mmHg. Pericardium/Pleural The pericardium appears epicardial fat pad. There is small pericardial effusion. Inferior Vena Cava Normal inferior vena cava with >50% collapse upon inspiration consistent with normal right atrial pressure, 5 mmHg. Aorta The aortic root size at the sinus of Valsalva is normal. There is mild-moderate aortic atherosclerosis. Left Ventricular Outflow Tract Name Value Normal LVOT 2D LVOT Diameter 2.1 cm LVOT Doppler LVOT Peak Gradient 3 mmHg LVOT Mean Gradient 1 mmHg LVOT VTI 16 cm LVOT VTI/AV VTI Ratio 0.8 LVOT Stroke Volume 57 ml LVOT CO 4.2 l/min LVOT CI
[2023-04-08] MEDS: LORazepam (*CRX) 0.5 MG TABLET PO (00:29)
[2023-04-08 00:31] LABS: Appearance Urine Clear (Clear); Bacteria Urine None Seen /hpf; Bilirubin Urine Negative (Negative); Blood Urine Trace (Negative); Calcium Oxalate Crystals Urine Present /hpf; Color Urine Yellow (Yellow); Glucose Urine UA Negative (Negative); Ketones Urine Negative (Negative); Leukocyte Esterase Ur Negative LEU/UL (Negative); Nitrate Urine Negative (Negative); Protein Urine Trace mg/dL (Negative); RBC Urine 0-2 /hpf (0-2); Specific Grav Ur 1.034 (1.001-1.035); Squamous Epithelial Cell Urine None seen /hpf (Few); Urobilinogen Urine 0.2 mg/dL (<2.0); WBC Urine 0-5 /hpf
[2023-04-08 00:36] LABS: Add Urine Microscopic? YES
--- NOTE | 2023-04-08 02:24 | PM.IMHP ---
H&P: HPI History of Present Illness Date/Time: 04/08/23 02:24 Chief Complaint: GENERALIZED WEAKNESS Narrative: This is an 82-year-old male with past medical history significant for hypertension, atrial fibrillation, anticoagulated rate controlled, high degenerative joint disease, GERD. patient comes to the emergency room due to generalized weakness, bilateral lower extremity swelling, patient denies any lightheadedness, dizziness ,chest pain ,shortness of breath ,cough, sputum production, nausea ,vomiting, diarrhea ,abdominal pain ,PND or orthopnea no focal weakness, no fevers ,no rigors, no chills. has had bilateral lower extremity swelling for the last 2 months denies any muscle aches or pains. Preliminary workup has been essentially nonrevealing. Patient has been admitted for further evaluation management and treatment. EXAMINATION: CT brain wo/w con DATE: 04/07/2023 21:13 INDICATION: Worsening. Weakness. TECHNIQUE: Computed tomography (CT) of the head was performed without intravenous contrast. The dose-length product was 1513.33 mGy-cm. Automated exposure control and iterative reconstruction technique were employed. COMPARISON: CT dated 01/30/2023 FINDINGS: Generalized atrophy. There are scattered mild periventricular and subcortical white matter changes, most likely related to small vessel ischemic disease (microangiopathy). No ventriculomegaly or midline shift. There is intracranial atherosclerosis. No acute infarction, hemorrhage, mass or mass effect. Basilar cisterns are patent. Paranasal sinus and mastoids are pneumatized. No depressed skull fractures. IMPRESSION: 1. No acute intracranial abnormality. EXAMINATION: XR chest 2V 04/07/2023 19:56 INDICATION: Weakness. Dyspnea. PROCEDURE:? 2 view chest COMPARISON: Comparison to multiple prior studies sequentially, with oldest reviewed study dated? 09/27/2015. FINDINGS: The lungs are clear.? The cardiomediastinal silhouette is within normal limits.? There are no pleural effusions.? There is no pneumothorax suspected.? IMPRESSION: 1:? NO ACUTE CARDIOPULMONARY DISEASE. Review of Systems Review of Systems: generalized weakness Constitutional: Constitutional: Denies chills, Denies fatigue, Denies fever(s), Reports frequent falls, Denies malaise, Denies poor appetite and Reports weakness Eyes: Eyes: Denies blurry vision and Denies change in vision ENT: Denies dysphagia, Denies vertigo, Denies dizziness and Denies odynophagia Cardiovascular: Cardiovascular: Denies chest pain, Reports leg edema, Denies radiating jaw, neck or arm pain and Denies palpitations Respiratory: Respiratory: Denies chest congestion, Denies cough and Denies excessive phlegm production Gastrointestinal: Gastrointestinal: Denies abdominal pain, Denies melena, Denies change in stool character, Denies coffee ground emesis, Denies dyspepsia, Denies heartburn, Denies diarrhea, Denies nausea and Denies vomiting Genitourinary: Genitourinary: Denies dysuria Musculoskeletal: Musculoskeletal: Denies myalgias, Denies atrophy, Denies muscle cramps and Reports muscle weakness Integumentary/Breasts: Skin/Breast: Denies rash Neurologic: Denies focal weakness and Denies Sensory deficit (Neuro) Psychiatric: Psychiatric: Reports no additional psychiatric complaints and Reports as per HPI Endocrine: Endocrine: Denies cold intolerance, Denies flushing, Denies heat intolerance, Denies polyphagia, Denies polydipsia and Denies palpitations Hematologic/Lymphatic: Hematologic/Lymphatic: Reports no additional hematologic/lymphatic complaints and Reports as per HPI Allergic/Immunologic: Allergic/Immunologic: Reports no additional allergic/immunologic complaints and Reports as per HPI PMFSH Past Medical History Medical History Aortic atherosclerosis Arthritis CKD (chronic kidney disease), stage III Degenerative joint disease of knee DISH
--- NOTE | 2023-04-08 03:18 | PC.NURSE ---
This patient, Abdias Hills, was admitted to Medical Room 344-01. Patient/family oriented to hospital policies and general routines including ID bracelet, bed and alarms, visiting hours, pain management, procedures, bathroom and other care routines, personal items, smoking policy, room service/diet, and visiting hours. Information on how to activate the Rapid Response Team has been discussed. Patient/Family are encouraged to report perceived risks to care and to ask questions if they do not understand what they are told or what they should do.
[2023-04-08 07:28] LABS: Glucose Point of Care 98 mg/dl (65-105)
--- NOTE | 2023-04-08 09:20 | PC.NURSE ---
Patient off of unit for US
[2023-04-08 09:27] LABS: Hematocrit 46.4 % (42.0-52.0); Hemoglobin 15.4 g/dL (14.0-18.0); Mean Corpuscular HGB Conc 33.2 g/dl (32-36); Mean Corpuscular Hemoglobin 33.6 pg (26-34); Mean Corpuscular Volume 101.1 fl (80-100); Mean Platelet Volume 9.4 fl (7.4-10.4); Platelet Count Result 134 k/mm3 (150-375); Red Blood Count 4.59 M/mm3 (4.6-6.20); Red Cell Distribution Width 12.4 % (11.5-14.5); White Blood Count 4.3 K/mm3 (4.5-10.0)
[2023-04-08 09:52] LABS: Anion Gap 6 mmol/L (8-16); Blood Urea Nitrogen 20 mg/dL (9-20); Calcium 8.7 mg/dL (8.4-10.2); Carbon Dioxide 29 mmol/L (22-30); Chloride 103 mmol/L (98-107); Estimated CRCL calculation 58 ml/min; Estimated Glomerular Filt Rate > 60; Glucose 117 mg/dL (65-110); Potassium 3.8 mmol/L (3.4-5.0); Sodium 138 mmol/L (137-145)
--- NOTE | 2023-04-08 10:00 | PC.NURSE ---
Patient returned to unit from US
--- NOTE | 2023-04-08 10:44 | PCPTNOTE ---
Attempted PT evaluation. Pt currently getting a procedure at bedside. Will wait for test results prior to mobilizing pt. Will follow.
--- NOTE | 2023-04-08 11:30 | PCOTNOTE ---
Pt . tested positive for deep venous thrombosis of right common femoral and bilateral femoral veins, PT spoke with hospitalist, who agreed to waiting for therapy evaluation due to safety concerns. Following.
--- NOTE | 2023-04-08 11:32 | PCPTNOTE ---
Pt has DVT, will hold off until pt appropriate to see - hospitalist aware. Will Follow.
[2023-04-08 11:37] LABS: Glucose Point of Care 103 mg/dl (65-105)
--- NOTE | 2023-04-08 14:04 | PM.IMPN ---
Progress Note: A&P Assessment and Plan (1) Bilateral leg weakness: Code(s): R29.898 - Other symptoms and signs involving the musculoskeletal system Status: Acute Assessment and Plan: admit to regular medical floor CT of thoracic and lumbar spine in the morning echocardiogram in the morning PT OT (2) CKD (chronic kidney disease): Code(s): N18.9 - Chronic kidney disease, unspecified Status: Acute Assessment and Plan: BUN and creatinine at patient's baseline continue to monitor (3) Degenerative joint disease of knee: Code(s): M17.9 - Osteoarthritis of knee, unspecified Status: Acute Assessment and Plan: Tylenol p.r.n. (4) Neuropathy: Code(s): G62.9 - Polyneuropathy, unspecified Status: Acute Assessment and Plan: continue home medications (5) DISH (diffuse idiopathic skeletal hyperostosis): Code(s): M48.10 - Ankylosing hyperostosis [Forestier], site unspecified Status: Acute Assessment and Plan: Thoracic CT today shows Impression: Chronic compression deformity of T6. Minimal grade 1 retrolisthesis of L5 over S1. Moderate to advanced degenerative spondylosis in the lumbar spine, as detailed above. PT/OT ordered Recent stay in 01/2023 with [facility] (6) Atrial fibrillation: Qualifiers: Atrial fibrillation type: unspecified Qualified Code(s): I48.91 - Unspecified atrial fibrillation Code(s): I48.91 - Unspecified atrial fibrillation Status: Acute Assessment and Plan: EKG on admission shows A-fib with RVR -placed on telemetry -Patient says he follows with Dr Valle here at [facility] but it looks like the last time he was seen was 03/2020 for a cardioversion. It seems like his has been rate controlled as he is not on any rate controlling agents. (7) Obstructive sleep apnea (adult) (pediatric): Code(s): G47.33 - Obstructive sleep apnea (adult) (pediatric) Status: Acute Assessment and Plan: CPAP at nighttime (8) DVT (deep venous thrombosis): Code(s): I82.409 - Acute embolism and thrombosis of unspecified deep veins of unspecified lower extremity Status: Acute Assessment and Plan: Recently diagnosed with DVT at [facility] on 01/21/2023. According to chart review DVT has improved. BLE doppler from 01/2023: Right acute occlusive venous filling defect in the femoral, popliteal, deep calf and proximal saphenous veins, resting venous flow absent, and no valve reflux with compression maneuvers detected in the femur or popliteal veins. ? -Patient was noncompliant with his Eliquis so he was started on DVT dosing at that time. Now taking Eliquis 5 mg PO BID. Patient says that he has been taking his medication has prescribed. Subjective Date/time seen: 04/08/23 14:04 Objective Data Vital Signs Vital Signs: Vital Signs - 24 hr 04/07/23 18:35 04/07/23 18:41 04/07/23 18:42 Temperature 98.4 F Pulse Rate 116 H 115 H 120 H Respiratory Rate 12 12 16 Blood Pressure 153/96 H 153/96 H Pulse Oximetry 98 Oxygen Delivery Room Air 04/07/23 18:45 04/07/23 18:46 04/07/23 19:00 Temperature Pulse Rate 117 H 122 H Respiratory Rate 13 14 15 Blood Pressure 140/86 145/95 H Pulse Oximetry 99 98 Oxygen Delivery 04/07/23 19:01 04/07/23 19:18 04/07/23 19:32 Temperature Pulse Rate 116 H 108 H Respiratory Rate 14 15 13 Blood Pressure Pulse Oximetry Oxygen Delivery 04/07/23 19:45 04/07/23 20:16 04/07/23 20:30 Temperature Pulse Rate 104 H 113 H 102 H Respiratory Rate 10 L 15 14 Blood Pressure Pulse Oximetry 100 Oxygen Delivery 04/07/23 20:46 04/07/23 21:13 04/07/23 21:16 Temperature Pulse Rate Respiratory Rate 12 15 Blood Pressure Pulse Oximetry 100 98 Oxygen Delivery 04/07/23 21:30 04/07/23 21:31 04/07/23 21:48 Temperature Pulse Rate 104 H 106 H 100 Respiratory Rate 15 12 13 Bl
[2023-04-08 16:36] LABS: Glucose Point of Care 103 mg/dl (65-105)
[2023-04-08] MEDS: GABAPENTIN 400 MG CAPSULE 1200 MG PO (20:03)
[2023-04-08] MEDS: APIXABAN 5 MG TABLET PO (20:03)
[2023-04-08] MEDS: busPIRone HCL 5 MG TABLET 15 MG PO (20:03)
[2023-04-08] MEDS: lisinopriL 20 MG TABLET 40 MG PO (20:04)
[2023-04-09] VITALS (10 sets, daily range): BP systolic 131–162; BP diastolic 84–95; PULSE 52–112; RESP 16–20; TEMP 36.4–36.6; O2SAT 98–100
[2023-04-09 06:33] LABS: Basophils Absolute Auto 0.1 K/mm3 (0.0-0.1); Basophils Percent Auto 1.1 % (0.2-1.2); Eosinophils Absolute Auto 0.1 K/mm3 (0-0.3); Eosinophils Percent Auto 2.9 % (0-4.4); Hematocrit 46.6 % (42.0-52.0); Hemoglobin 15.5 g/dL (14.0-18.0); Immature Granulocyte Absolute 0.03 K/mm3 (0.00-0.031); Immature Granulocyte Percent A 0.7 % (0-0.5); Lymphocytes Absolute Auto 0.81 K/mm3 (0.9-3.2); Mean Corpuscular HGB Conc 33.3 g/dl (32-36); Mean Corpuscular Hemoglobin 33.3 pg (26-34); Mean Platelet Volume 9.3 fl (7.4-10.4); Monocytes Absolute Auto 0.4 K/mm3 (0.1-0.6); Monocytes Percent Auto 9.5 % (2.6-8.5); Neutrophils Absolute Auto 3.1 K/mm3 (1.3-6.7); Neutrophils Percent Auto 67.8 % (45.5-73.1); Platelet Count Result 154 k/mm3 (150-375); Red Blood Count 4.66 M/mm3 (4.6-6.20); Red Cell Distribution Width 12.4 % (11.5-14.5); White Blood Count 4.5 K/mm3 (4.5-10.0)
[2023-04-09 06:40] LABS: Prothrombin Time 13.4 Seconds (11.1-14.7)
[2023-04-09 06:41] LABS: Partial Thromboplastin Time 31.7 SECONDS (22.3-36.8)
[2023-04-09 06:46] LABS: Alanine Aminotransferase 20 U/L (6-50); Albumin Level 3.7 g/dL (3.5-5.1); Alkaline Phosphatase 60 U/L (38-126); Anion Gap 3 mmol/L (8-16); Aspartate Amino Transferase 26 U/L (17-59); Bilirubin,Total 0.7 mg/dL (0.2-1.3); Blood Urea Nitrogen 18 mg/dL (9-20); Calcium 8.9 mg/dL (8.4-10.2); Carbon Dioxide 33 mmol/L (22-30); Chloride 104 mmol/L (98-107); Estimated CRCL calculation 53 ml/min; Estimated Glomerular Filt Rate 58; Glucose 93 mg/dL (65-110); Potassium 4.4 mmol/L (3.4-5.0); Sodium 140 mmol/L (137-145)
[2023-04-09 08:11] LABS: Glucose Point of Care 98 mg/dl (65-105)
--- NOTE | 2023-04-09 08:57 | PCPTNOTE ---
Spoke with Hospitalist Modesta Mcqueen APRN, Who OK pt to participate in OOB activity. Will Make RN aware.
--- NOTE | 2023-04-09 09:00 | PCPTNOTE ---
Attempted PT evaluation. Pt refused. RN aware. Will follow.
[2023-04-09] MEDS: GABAPENTIN 300 MG CAPSULE 600 MG PO (09:13)
[2023-04-09] MEDS: amLODIPine BESYLATE 5 MG TABLET 10 MG PO (09:14)
[2023-04-09] MEDS: busPIRone HCL 5 MG TABLET 15 MG PO ×2 (09:14→20:59)
[2023-04-09] MEDS: APIXABAN 5 MG TABLET PO ×2 (09:14→20:59)
--- NOTE | 2023-04-09 10:09 | PM.IMPN ---
Progress Note: A&P Assessment and Plan (1) Bilateral leg weakness: Code(s): R29.898 - Other symptoms and signs involving the musculoskeletal system Status: Acute Assessment and Plan: admit to regular medical floor CT of thoracic and lumbar spine in the morning echocardiogram in the morning PT OT recommending SNF however patient is Medicare observation at this time. [facility] is reviewing his case. (2) CKD (chronic kidney disease): Code(s): N18.9 - Chronic kidney disease, unspecified Status: Acute Assessment and Plan: BUN and creatinine at patient's baseline continue to monitor (3) Degenerative joint disease of knee: Code(s): M17.9 - Osteoarthritis of knee, unspecified Status: Acute Assessment and Plan: Tylenol p.r.n. (4) Neuropathy: Code(s): G62.9 - Polyneuropathy, unspecified Status: Acute Assessment and Plan: continue home medications (5) DISH (diffuse idiopathic skeletal hyperostosis): Code(s): M48.10 - Ankylosing hyperostosis [Forestier], site unspecified Status: Acute Assessment and Plan: Thoracic CT today shows Impression: Chronic compression deformity of T6. Minimal grade 1 retrolisthesis of L5 over S1. Moderate to advanced degenerative spondylosis in the lumbar spine, as detailed above. PT/OT ordered Recent stay in 01/2023 with [facility] (6) Atrial fibrillation: Qualifiers: Atrial fibrillation type: unspecified Qualified Code(s): I48.91 - Unspecified atrial fibrillation Code(s): I48.91 - Unspecified atrial fibrillation Status: Acute Assessment and Plan: EKG on admission shows A-fib with RVR -placed on telemetry -Patient says he follows with Dr Valle here at [facility] but it looks like the last time he was seen was 03/2020 for a cardioversion. It seems like his has been rate controlled as he is not on any rate controlling agents. (7) Obstructive sleep apnea (adult) (pediatric): Code(s): G47.33 - Obstructive sleep apnea (adult) (pediatric) Status: Acute Assessment and Plan: CPAP at nighttime (8) DVT (deep venous thrombosis): Code(s): I82.409 - Acute embolism and thrombosis of unspecified deep veins of unspecified lower extremity Status: Acute Assessment and Plan: Recently diagnosed with DVT at [facility] on 01/21/2023. According to chart review DVT has improved. BLE doppler from 01/2023: Right acute occlusive venous filling defect in the femoral, popliteal, deep calf and proximal saphenous veins, resting venous flow absent, and no valve reflux with compression maneuvers detected in the femur or popliteal veins. ? -Patient was noncompliant with his Eliquis so he was started on DVT dosing at that time. Now taking Eliquis 5 mg PO BID. Patient says that he has been taking his medication has prescribed. Plan Awaiting consult with neurology, likely discharge in the next 1-2 days if no further work up needed. Subjective Date/time seen: 04/09/23 10:09 Interval history: HPI obtained from chart This is an 82-year-old male with past medical history significant for hypertension, atrial fibrillation, anticoagulated rate controlled, high degenerative joint disease, GERD. patient comes to the emergency room due to generalized weakness, bilateral lower extremity swelling, patient denies any lightheadedness, dizziness ,chest pain ,shortness of breath ,cough, sputum production, nausea ,vomiting, diarrhea ,abdominal pain ,PND or orthopnea no focal weakness, no fevers ,no rigors, no chills. has had bilateral lower extremity swelling for the last 2 months denies any muscle aches or pains.? Preliminary workup has been essentially nonrevealing.? Patient has been admitted for further evaluation management and treatment. 04/08: Patient seen today with at bedside. He says that he is here because he has been having trouble with falling and weaknes
[2023-04-09 12:23] LABS: Glucose Point of Care 111 mg/dl (65-105)
--- NOTE | 2023-04-09 14:03 | PCPTNOTE ---
On 04/09/23, the student, MARCELA May, provided care and completed [facility] documentation on this patient. I have reviewed the student's documentation and agree with the findings.
--- NOTE | 2023-04-09 17:22 | PC.NURSE ---
Management Consultant spoke with Son, Joshua by phone at [phone]. The son would like a consult with cardiology to discuss patients afib. will pass the information to hospitalist in AM
[2023-04-09 17:23] LABS: Appearance Urine Clear (Clear); Bilirubin Urine Negative (Negative); Blood Urine Negative (Negative); Color Urine Yellow (Yellow); Glucose Urine UA Negative (Negative); Ketones Urine Negative (Negative); Leukocyte Esterase Ur Negative LEU/UL (NEGATIVE); Nitrate Urine Negative (Negative); Protein Urine Negative (Negative); Specific Grav Ur 1.009 (1.001-1.035); Urobilinogen Urine 0.2 mg/dL (<2.0)
[2023-04-09 17:25] LABS: Add Urine Microscopic? NO
[2023-04-09] MEDS: lisinopriL 20 MG TABLET 40 MG PO (20:58)
[2023-04-09] MEDS: GABAPENTIN 400 MG CAPSULE 1200 MG PO (20:58)
[2023-04-10] VITALS (10 sets, daily range): BP systolic 130–140; BP diastolic 81–84; PULSE 87–114; RESP 18–20; TEMP 36.2–36.4; O2SAT 98–99
[2023-04-10 05:44] LABS: Basophils Percent Auto 0.8 % (0.2-1.2); Eosinophils Absolute Auto 0.1 K/mm3 (0-0.3); Hematocrit 44.6 % (42.0-52.0); Hemoglobin 14.8 g/dL (14.0-18.0); Immature Granulocyte Absolute 0.02 K/mm3 (0.00-0.031); Immature Granulocyte Percent A 0.5 % (0-0.5); Lymphocytes Absolute Auto 0.85 K/mm3 (0.9-3.2); Lymphocytes Percent Auto 21.5 % (18.3-44.2); Mean Corpuscular HGB Conc 33.2 g/dl (32-36); Mean Corpuscular Volume 99.3 fl (80-100); Mean Platelet Volume 9.6 fl (7.4-10.4); Monocytes Absolute Auto 0.4 K/mm3 (0.1-0.6); Monocytes Percent Auto 10.6 % (2.6-8.5); Neutrophils Absolute Auto 2.5 K/mm3 (1.3-6.7); Neutrophils Percent Auto 63.6 % (45.5-73.1); Platelet Count Result 145 k/mm3 (150-375); Red Blood Count 4.49 M/mm3 (4.6-6.20)
[2023-04-10 05:51] LABS: Partial Thromboplastin Time 31.8 SECONDS (22.3-36.8)
[2023-04-10 06:05] LABS: Alanine Aminotransferase 20 U/L (6-50); Albumin Level 3.5 g/dL (3.5-5.1); Alkaline Phosphatase 51 U/L (38-126); Anion Gap 7 mmol/L (8-16); Aspartate Amino Transferase 25 U/L (17-59); Bilirubin,Total 0.7 mg/dL (0.2-1.3); Blood Urea Nitrogen 20 mg/dL (9-20); Calcium 8.7 mg/dL (8.4-10.2); Carbon Dioxide 27 mmol/L (22-30); Chloride 104 mmol/L (98-107); Estimated CRCL calculation 58 ml/min; Estimated Glomerular Filt Rate > 60; Glucose 96 mg/dL (65-110); Magnesium 2.2 mg/dL (1.6-2.3); Phosphorus 4.1 mg/dL (2.5-4.5); Potassium 3.8 mmol/L (3.4-5.0); Sodium 138 mmol/L (137-145)
[2023-04-10] MEDS: GABAPENTIN 300 MG CAPSULE 600 MG PO (09:16)
[2023-04-10] MEDS: APIXABAN 5 MG TABLET PO ×2 (09:16→21:34)
[2023-04-10] MEDS: amLODIPine BESYLATE 5 MG TABLET 10 MG PO (09:16)
[2023-04-10] MEDS: busPIRone HCL 5 MG TABLET 15 MG PO ×2 (09:16→21:35)
--- NOTE | 2023-04-10 11:37 | WPDNEURCNPN ---
Assessment and Plan Assessment and plan (1) Bilateral leg weakness: Code(s): R29.898 - Other symptoms and signs involving the musculoskeletal system Status: Acute (2) Atrial fibrillation: Qualifiers: Atrial fibrillation type: unspecified Qualified Code(s): I48.91 - Unspecified atrial fibrillation Code(s): I48.91 - Unspecified atrial fibrillation Status: Acute (3) Spondylosis: Code(s): M47.9 - Spondylosis, unspecified Status: Acute Plan Mr. Hills is an 82 year old male with a history of several medical conditions including atrial fibrillation, DVT, HTN, DJD, and neuropathy of unspecified etiology presenting for evaluation of acute on chronic worsening of lower extremity weakness. On exam, strength seems fairly preserved in the lower extremities distally, with very mild proximal weakness. The RUE is intact with some weakness in the LUE. Patient has a history of inconsistent compliance with Eliquis so occult stroke is a possibility (patient was not aware that his LUE was weaker). Also considering myopathic process given more proximal involvement as noted on exam. Also considering multifactorial etiology including deconditioning, spondylosis, and neuropathy of unspecified etiology. - Recommend MRI brain and lumbar spine without contrast - If unrevealing, will need EMG/NCS to be done as outpatient with Neuro follow-up Consult date: 04/10/23 Reason for consult: Lower extremity weakness HPI: Abdias Hills is a 82 year old male with a history of HTN, atrial fibrillation, degenerative disc disease, GERD, DVT presenting due to worsening lower extremity weakness. Per patient, he started having lower extremity weakness about 6 months ago, however, over the past week or so, he has fallen, indicating that his weakness has worsened. He denies any numbness or tingling in the lower extremities presently. However, from a prior PCP visit, patient at that time reported numbness/tingling in his toes and feet. Patient was recently admitted to rehab in January 2023 for the lower extremity weakness, thought to be secondary to deconditioning. He uses a walker at home, which he has been using for the past 6 months. There is a history of poor medication compliance with patient's Eliquis. During this Admission, CT head was negative for acute process. CT lumbar and thoracic spine showed chronic compression fracture of T6 and moderate/advanced degnerative spondylosis of lumbar spine. He currently denies any lower back pain as well. He has not had any urinary or stool incontinence. Patient denies any other symptoms other than lower extremity edema. He had a cervical spine MRI done in 2020 that showed severe spondylosis. Review of Systems Constitutional: Constitutional: Denies chills, Denies fever(s) and Denies weight loss Eyes: Eyes: Denies diplopia and Denies loss of vision ENT: Denies dizziness, Denies hearing loss and Denies tinnitus Cardiovascular: Cardiovascular: Denies chest pain, Denies syncope and Denies dyspnea Respiratory: Respiratory: Denies cough, Denies dyspnea and Denies wheezing Gastrointestinal: Gastrointestinal: Denies abdominal pain, Denies change in bowel habits and Denies vomiting Genitourinary: Genitourinary: Denies urinary incontinence Musculoskeletal: Musculoskeletal: Denies back pain, Denies arthralgias and Denies joint swelling Integumentary/Breasts: Skin/Breast: Denies new lesions and Denies rash Neurologic: Reports as per HPI, Denies dizziness, Denies syncope and Denies loss of vision Psychiatric: Psychiatric: Denies anxiety and Denies depression Endocrine: Endocrine: Denies cold intolerance and Denies heat intolerance Hematologic/Lymphatic: Hematologic/Lymphatic: Denies easy bleeding and Denies easy bruising Allergic/Immunologic: Allergic/Immunologic: Denies no additional allergic/immunologic complaints and Denies wheezing PMFSH Past Medical History Medical History (Reviewed 07
--- NOTE | 2023-04-10 12:51 | PM.IMPN ---
Progress Note: A&P Assessment and Plan (1) Bilateral leg weakness: Code(s): R29.898 - Other symptoms and signs involving the musculoskeletal system Status: Acute Assessment and Plan: admit to regular medical floor echocardiogram in the morning PT OT recommending SNF however patient is Medicare observation at this time. [facility] is reviewing his case. Neurology consulted and recommends MRI of brain and lumbar spine without contrast. (2) CKD (chronic kidney disease): Code(s): N18.9 - Chronic kidney disease, unspecified Status: Acute Assessment and Plan: BUN and creatinine at patient's baseline continue to monitor (3) Degenerative joint disease of knee: Code(s): M17.9 - Osteoarthritis of knee, unspecified Status: Acute Assessment and Plan: Tylenol p.r.n. (4) Neuropathy: Code(s): G62.9 - Polyneuropathy, unspecified Status: Acute Assessment and Plan: continue home medications (5) DISH (diffuse idiopathic skeletal hyperostosis): Code(s): M48.10 - Ankylosing hyperostosis [Forestier], site unspecified Status: Acute Assessment and Plan: Thoracic CT today shows Impression: Chronic compression deformity of T6. Minimal grade 1 retrolisthesis of L5 over S1. Moderate to advanced degenerative spondylosis in the lumbar spine, as detailed above. PT/OT ordered Recent stay in 01/2023 with [facility] (6) Atrial fibrillation: Qualifiers: Atrial fibrillation type: unspecified Qualified Code(s): I48.91 - Unspecified atrial fibrillation Code(s): I48.91 - Unspecified atrial fibrillation Status: Acute Assessment and Plan: EKG on admission shows A-fib with RVR -placed on telemetry -Patient says he follows with Dr Valle here at [place] but it looks like the last time he was seen was 03/2020 for a cardioversion. It seems like his has been rate controlled as he is not on any rate controlling agents. -Has been rate controlled this admission but now HR ranging into the 120-130s. Consult cards for rate control recommendations and because family has requested he be seen while inpatient. (7) Obstructive sleep apnea (adult) (pediatric): Code(s): G47.33 - Obstructive sleep apnea (adult) (pediatric) Status: Acute Assessment and Plan: CPAP at nighttime (8) DVT (deep venous thrombosis): Code(s): I82.409 - Acute embolism and thrombosis of unspecified deep veins of unspecified lower extremity Status: Acute Assessment and Plan: Recently diagnosed with DVT at [facility] on 01/21/2023. According to chart review DVT has improved. BLE doppler from 01/2023: Right acute occlusive venous filling defect in the femoral, popliteal, deep calf and proximal saphenous veins, resting venous flow absent, and no valve reflux with compression maneuvers detected in the femur or popliteal veins. ? -Patient was noncompliant with his Eliquis so he was started on DVT dosing at that time. Now taking Eliquis 5 mg PO BID. Patient says that he has been taking his medication has prescribed. Plan -Need MRI -Cards recs for rate control -If MRI normal, then d/c to [facility] with neurology follow Subjective Date/time seen: 04/10/23 12:51 Interval history: HPI obtained from chart This is an 82-year-old male with past medical history significant for hypertension, atrial fibrillation, anticoagulated rate controlled, high degenerative joint disease, GERD. patient comes to the emergency room due to generalized weakness, bilateral lower extremity swelling, patient denies any lightheadedness, dizziness ,chest pain ,shortness of breath ,cough, sputum production, nausea ,vomiting, diarrhea ,abdominal pain ,PND or orthopnea no focal weakness, no fevers ,no rigors, no chills. has had bilateral lower extremity swelling for the last 2 months denies any muscle aches or pains.? Preliminary workup has been essentially non
[2023-04-10] MEDS: GABAPENTIN 400 MG CAPSULE 1200 MG PO (21:33)
[2023-04-10] MEDS: lisinopriL 20 MG TABLET 40 MG PO (21:34)
[2023-04-11] VITALS (7 sets, daily range): BP systolic 124–149; BP diastolic 72–94; PULSE 71–98; RESP 18; TEMP 35.9–36.5; O2SAT 100
[2023-04-11 05:40] LABS: Eosinophils Absolute Auto 0.1 K/mm3 (0-0.3); Eosinophils Percent Auto 3.1 % (0-4.4); Hematocrit 49.1 % (42.0-52.0); Hemoglobin 16.2 g/dL (14.0-18.0); Immature Granulocyte Absolute 0.03 K/mm3 (0.00-0.031); Immature Granulocyte Percent A 0.7 % (0-0.5); Lymphocytes Absolute Auto 0.82 K/mm3 (0.9-3.2); Lymphocytes Percent Auto 19.6 % (18.3-44.2); Mean Corpuscular Hemoglobin 33.1 pg (26-34); Mean Corpuscular Volume 100.2 fl (80-100); Mean Platelet Volume 9.2 fl (7.4-10.4); Monocytes Absolute Auto 0.5 K/mm3 (0.1-0.6); Monocytes Percent Auto 11.5 % (2.6-8.5); Neutrophils Absolute Auto 2.7 K/mm3 (1.3-6.7); Neutrophils Percent Auto 64.1 % (45.5-73.1); Platelet Count Result 155 k/mm3 (150-375); Red Cell Distribution Width 12.3 % (11.5-14.5); White Blood Count 4.2 K/mm3 (4.5-10.0)
[2023-04-11 06:02] LABS: Alanine Aminotransferase 22 U/L (6-50); Albumin Level 3.8 g/dL (3.5-5.1); Alkaline Phosphatase 55 U/L (38-126); Anion Gap 3 mmol/L (8-16); Aspartate Amino Transferase 27 U/L (17-59); Bilirubin,Total 0.8 mg/dL (0.2-1.3); Blood Urea Nitrogen 21 mg/dL (9-20); Carbon Dioxide 30 mmol/L (22-30); Chloride 104 mmol/L (98-107); Estimated CRCL calculation 49 ml/min; Estimated Glomerular Filt Rate 53; Glucose 101 mg/dL (65-110); Potassium 4.4 mmol/L (3.4-5.0); Sodium 137 mmol/L (137-145)
[2023-04-11] MEDS: GABAPENTIN 300 MG CAPSULE 600 MG PO (09:09)
[2023-04-11] MEDS: busPIRone HCL 5 MG TABLET 15 MG PO (09:09)
[2023-04-11] MEDS: amLODIPine BESYLATE 5 MG TABLET 10 MG PO (09:09)
[2023-04-11] MEDS: APIXABAN 5 MG TABLET PO (09:09)
--- NOTE | 2023-04-11 09:24 | PM.IMPN ---
Progress Note: A&P Assessment and Plan (1) Bilateral leg weakness: Code(s): R29.898 - Other symptoms and signs involving the musculoskeletal system Status: Acute Assessment and Plan: PT OT recommending SNF however patient is Medicare observation at this time. [facility] is reviewing his case. Neurology consulted and recommends MRI of brain and lumbar spine without contrast. -Imaging was not concerning for acute process. Will plan for outpatient follow up with EMG and neuro. (2) CKD (chronic kidney disease): Code(s): N18.9 - Chronic kidney disease, unspecified Status: Acute Assessment and Plan: BUN and creatinine at patient's baseline continue to monitor (3) Degenerative joint disease of knee: Code(s): M17.9 - Osteoarthritis of knee, unspecified Status: Acute Assessment and Plan: Tylenol p.r.n. (4) Neuropathy: Code(s): G62.9 - Polyneuropathy, unspecified Status: Acute Assessment and Plan: continue home medications (5) DISH (diffuse idiopathic skeletal hyperostosis): Code(s): M48.10 - Ankylosing hyperostosis [Forestier], site unspecified Status: Acute Assessment and Plan: Thoracic CT today shows Impression: Chronic compression deformity of T6. Minimal grade 1 retrolisthesis of L5 over S1. Moderate to advanced degenerative spondylosis in the lumbar spine, as detailed above. PT/OT ordered Recent stay in 01/2023 with [facility] (6) Atrial fibrillation: Qualifiers: Atrial fibrillation type: unspecified Qualified Code(s): I48.91 - Unspecified atrial fibrillation Code(s): I48.91 - Unspecified atrial fibrillation Status: Acute Assessment and Plan: EKG on admission shows A-fib with RVR -placed on telemetry -Patient says he follows with Dr Valle here at [facility] but it looks like the last time he was seen was 03/2020 for a cardioversion. It seems like his has been rate controlled as he is not on any rate controlling agents. -Has been rate controlled without pharmacological agents. During admission has had mild HR elevation ranging into the 120-130s with activity. Family also has been asking to have cardiology see him. (7) Obstructive sleep apnea (adult) (pediatric): Code(s): G47.33 - Obstructive sleep apnea (adult) (pediatric) Status: Acute Assessment and Plan: CPAP at nighttime (8) DVT (deep venous thrombosis): Code(s): I82.409 - Acute embolism and thrombosis of unspecified deep veins of unspecified lower extremity Status: Acute Assessment and Plan: Recently diagnosed with DVT at [facility] on 01/21/2023. According to chart review DVT has improved. BLE doppler from 01/2023: Right acute occlusive venous filling defect in the femoral, popliteal, deep calf and proximal saphenous veins, resting venous flow absent, and no valve reflux with compression maneuvers detected in the femur or popliteal veins. ?-Now taking Eliquis 5 mg PO BID. Patient says that he has been taking his medication has prescribed. Plan -MRI normal -Needs EMG outpatient with neurology follow up -Cards consult today for concerns with rate control. Rate controlled overnight and appropriately anticoagulated. -D/C to [facility] today. Subjective Date/time seen: 04/11/23 09:24 Interval history: HPI obtained from chart This is an 82-year-old male with past medical history significant for hypertension, atrial fibrillation, anticoagulated rate controlled, high degenerative joint disease, GERD. patient comes to the emergency room due to generalized weakness, bilateral lower extremity swelling, patient denies any lightheadedness, dizziness ,chest pain ,shortness of breath ,cough, sputum production, nausea ,vomiting, diarrhea ,abdominal pain ,PND or orthopnea no focal weakness, no fevers ,no rigors, no chills. has had bilateral lower extremity swelling for the last 2 months denies any muscle a
[2023-04-11] MEDS: ACETAMINOPHEN 325 MG TABLET 650 MG PO (12:27)
--- NOTE | 2023-04-11 14:05 | PM.DS ---
DS: Admitting Diagnosis Discharge Date April 11 Admitting Diagnosis Atrial fibrillation DS: Discharge Diagnosis Discharge Diagnosis (1) Bilateral leg weakness: Code(s): R29.898 - Other symptoms and signs involving the musculoskeletal system Status: Acute Assessment and Plan: PT OT recommending SNF however patient is Medicare observation at this time. [facility]. Neurology consulted and recommends MRI of brain and lumbar spine without contrast. -Imaging was not concerning for acute process. Will plan for outpatient follow up with EMG and neuro. (2) CKD (chronic kidney disease): Code(s): N18.9 - Chronic kidney disease, unspecified Status: Acute Assessment and Plan: BUN and creatinine at patient's baseline continue to monitor (3) Degenerative joint disease of knee: Code(s): M17.9 - Osteoarthritis of knee, unspecified Status: Acute Assessment and Plan: Tylenol p.r.n. (4) Neuropathy: Code(s): G62.9 - Polyneuropathy, unspecified Status: Acute Assessment and Plan: continue home medications (5) DISH (diffuse idiopathic skeletal hyperostosis): Code(s): M48.10 - Ankylosing hyperostosis [Forestier], site unspecified Status: Acute Assessment and Plan: Thoracic CT today shows Impression: Chronic compression deformity of T6. Minimal grade 1 retrolisthesis of L5 over S1. Moderate to advanced degenerative spondylosis in the lumbar spine, as detailed above. PT/OT ordered Recent stay in 01/2023 with [facility] (6) Atrial fibrillation: Qualifiers: Atrial fibrillation type: unspecified Qualified Code(s): I48.91 - Unspecified atrial fibrillation Code(s): I48.91 - Unspecified atrial fibrillation Status: Acute Assessment and Plan: EKG on admission shows A-fib with RVR -placed on telemetry -Patient says he follows with Dr Valle here at [place] but it looks like the last time he was seen was 03/2020 for a cardioversion. It seems like his has been rate controlled as he is not on any rate controlling agents. -Has been rate controlled without pharmacological agents. During admission has had mild HR elevation ranging into the 120-130s with activity. Family also has been asking to have cardiology see him. (7) Obstructive sleep apnea (adult) (pediatric): Code(s): G47.33 - Obstructive sleep apnea (adult) (pediatric) Status: Acute Assessment and Plan: CPAP at nighttime (8) DVT (deep venous thrombosis): Code(s): I82.409 - Acute embolism and thrombosis of unspecified deep veins of unspecified lower extremity Status: Acute Assessment and Plan: Recently diagnosed with DVT at [facility] on 01/21/2023. According to chart review DVT has improved. BLE doppler from 01/2023: Right acute occlusive venous filling defect in the femoral, popliteal, deep calf and proximal saphenous veins, resting venous flow absent, and no valve reflux with compression maneuvers detected in the femur or popliteal veins. ?-Now taking Eliquis 5 mg PO BID. Patient says that he has been taking his medication has prescribed. Plan -MRI normal -Needs EMG outpatient with neurology follow up -Cards consult today for concerns with rate control. Rate controlled overnight and appropriately anticoagulated. -D/C to [facility] today. DS: Summary Hospital Course Reason for hospitalization: Weakness, falls Hospital Course: HPI obtained from chart This is an 82-year-old male with past medical history significant for hypertension, atrial fibrillation, anticoagulated rate controlled, high degenerative joint disease, GERD. patient comes to the emergency room due to generalized weakness, bilateral lower extremity swelling, patient denies any lightheadedness, dizziness ,chest pain ,shortness of breath ,cough, sputum production, nausea ,vomiting, diarrhea ,abdominal pain ,PND or orthopnea
--- NOTE | 2023-04-11 14:09 | PM.CNCAR ---
Assessment and Plan Assessment and plan (1) Atrial fibrillation: Qualifiers: Atrial fibrillation type: unspecified Qualified Code(s): I48.91 - Unspecified atrial fibrillation Code(s): I48.91 - Unspecified atrial fibrillation Status: Acute Plan This is an 82-year-old man with atrial fibrillation he was treated initially with a rhythm control strategy with amiodarone and apixaban. Amiodarone was discontinued 2 years ago because of suspected neuropathy. One would presume his neuropathy was not amiodarone related since he has continued to have ongoing lower extremity weakness. Because of this of course it is not surprising that he is back in atrial fibrillation. Fortunately he is asymptomatic with respect to the arrhythmia. Asked to see him today to try to provide somewhat better rate control. The simplest thing to do would be to shift him from amlodipine to diltiazem as his calcium channel one[place] which should provide better rate control. I have changed those orders starting with tomorrow morning's dose. Systemic anticoagulation with apixaban is still in place and is important. We will follow him with you while he is in the hospital Ross Malik MD [facility] History of Present Illness History of Present Illness Consult date/time: 04/11/23 14:09 Reason For Visit: Lower Extremity Weakness Narrative: This is an 82-year-old patient who follows with my partner, Dr. Valle with a history of atrial fibrillation am seeing him at the request of the hospitalist. He was admitted to the hospital 4 days ago because of symptoms of generalized weakness and he had taken a fall at home. He has been having problems according to my partner's notes with lower extremity weakness and had evidence of a neuropathy for at least 2-3 years. His only cardiac history is that of atrial fibrillation he developed atrial fibrillation a number of years ago was treated with DC cardioversion and was maintained on amiodarone to remain in sinus rhythm. He was been anticoagulated with apixaban. In 2020 his amiodarone was discontinued by my partner because of these symptoms of neuropathy even though there was no immediate proof of this it was very suspicious that he was having side effects of the amiodarone in the drug was stopped. For the next year maintains sinus rhythm but that is no longer the case. Since he was hospitalized here earlier this past week he has been in atrial fibrillation overall is heart rate control is reasonable but at times he will have heart rates in the range of about 120. For that reason we have been asked to see him in consultation and I am on-call for the practice this weekend. His last appointment with my partner was in September of this year. His current medical regimen consists of amlodipine 10 mg daily, apixaban 5 mg twice daily, gabapentin 1200 mg HS lisinopril 40 mg daily and tramadol 50 mg b.i.d. meloxicam 7.5 mg b.i.d. p.r.n.. Review of Systems Constitutional: Constitutional: Reports lethargy Eyes: Eyes: Reports no additional eye complaints ENT: Reports system reviewed and no additional complaints, except as documented Cardiovascular: Cardiovascular: Reports no additional cardiovascular complaints Respiratory: Respiratory: Reports no additional respiratory complaints Gastrointestinal: Gastrointestinal: Reports no additional gastrointestinal complaints Musculoskeletal: Musculoskeletal: Reports arthralgias Integumentary/Breasts: Skin/Breast: Reports system reviewed and no additional complaints, except as docu Neurologic: Reports system reviewed and no additional complaints, except as documented Endocrine: Endocrine: Reports no additional endocrine complaints Hematologic/Lymphatic: Hematologic/Lymphatic: Reports no additional hematologic/lymphatic complaints Allergic/Immunologic: Allergic/Immunologic: Reports no additional allergic/immunologic complaints PMFSH Past Medical History Medical History (Rev
== END 2023-04-11 19:45 ==
LOC: ANHED 04-08 00:20 → ANH3MED 04-08 03:15
PROVIDERS: Nurse Practitioner Acute Care; Admitting Provider Internal Medicine; Emergency Provider Emergency Medicine; PCP Family Medicine; Visit Provider Student in an Organized Health Care Education/Training Program
DX: R29.898 Other symptoms and signs involving the musculoskeletal system (principal); R53.1 Weakness; R42 Dizziness and giddiness; F41.1 Generalized anxiety disorder; I70.0 Atherosclerosis of aorta; I48.91 Unspecified atrial fibrillation; Z99.89 Dependence on other enabling machines and devices; I12.9 Hypertensive chronic kidney disease with stage 1 through stage 4 chronic kidney disease, or unspecified chronic kidney disease; N18.4 Chronic kidney disease, stage 4 (severe); M17.0 Bilateral primary osteoarthritis of knee; M48.07 Spinal stenosis, lumbosacral region; M48.10 Ankylosing hyperostosis [Forestier], site unspecified; I82.411 Acute embolism and thrombosis of right femoral vein; I34.0 Nonrheumatic mitral (valve) insufficiency; K21.9 Gastro-esophageal reflux disease without esophagitis; D72.819 Decreased white blood cell count, unspecified; G62.9 Polyneuropathy, unspecified; M48.54XA Collapsed vertebra, not elsewhere classified, thoracic region, initial encounter for fracture; M47.816 Spondylosis without myelopathy or radiculopathy, lumbar region; M43.17 Spondylolisthesis, lumbosacral region; G47.33 Obstructive sleep apnea (adult) (pediatric); K58.9 Irritable bowel syndrome, unspecified; R06.02 Shortness of breath; R94.31 Abnormal electrocardiogram [ECG] [EKG]; Z90.49 Acquired absence of other specified parts of digestive tract; Z85.89 Personal history of malignant neoplasm of other organs and systems; Z79.1 Long term (current) use of non-steroidal anti-inflammatories (NSAID); Z79.891 Long term (current) use of opiate analgesic; Z79.01 Long term (current) use of anticoagulants; Z79.899 Other long term (current) drug therapy; Z82.49 Family history of ischemic heart disease and other diseases of the circulatory system
CPT/HCPCS: 36415; 70470; 70551; 71046; 72128; 72131; 72148; 73560; 80048; 80053; 80076; 81001; 81003; 82948; 83605; 83690; 83735; 83880; 84100; 84484; 85025; 85027; 85055; 85610; 85730; 93005; 93306; 93970; 96360; 97110; 97116; 97161; 97165; 97530; 97535; 99285; A9270; G0378; J7120; Q9967

== ENCOUNTER 2023-06-06 08:29 | Emergency (ER) | payer MEDICARE, SELFPAY ==
[2023-06-06] VITALS (23 sets, daily range): BP systolic 148–163; BP diastolic 89–109; PULSE 71–113; RESP 12–19; TEMP 36.9; O2SAT 96–99
--- NOTE | ~2023-06-06 | CT_ITS ---
EXAMINATION: CT brain wo con DATE: 06/06/2023 10:33 INDICATION: Trauma. Head injury. TECHNIQUE: Computed tomography (CT) of the head was performed without intravenous contrast. The dose- length product was 681.00 mGy-cm. Automated exposure control and iterative reconstruction technique w ere employed. COMPARISON: CT dated 04/07/2023 FINDINGS: No acute intracranial hemorrhage, infarction, mass or mass effect. There is intracranial at herosclerosis. Mild generalized atrophy. There are scattered mild periventricular and subcortical whi te matter changes, most likely related to small vessel ischemic disease (microangiopathy). Paranasal sinuses and mastoids are pneumatized. No depressed skull fractures. IMPRESSION: 1. No acute intracranial abnormality. Reviewed, dictated and finalized at location A.
--- NOTE | ~2023-06-06 | CT_ITS ---
EXAMINATION: CT abdomen pelvis wo con DATE: 06/06/2023 12:46 INDICATION: Hematuria TECHNIQUE: Computed tomography (CT) of the abdomen and pelvis was performed without intravenous contr ast. The dose-length product was 1591.21 mGy-cm. Automated exposure control and iterative reconstruct ion technique were employed. COMPARISON: CT dated 07/23/2021. FINDINGS: There is dependent atelectasis. Heart size normal. No significant pleural or pericardial ef fusion. Moderate gallbladder distention. There are subtle chronic mesenteric infiltrates near the hep atic flexure of the colon. Mild diverticulitis of the ascending colon cannot be excluded. There is a surgical anastomosis of the bowel of the right upper abdomen. There are calcified granulomas of the s pleen. There is bilateral renal atrophy. No renal stones or hydronephrosis. No ureteral stones. Small isodense exophytic left renal lesion, not well characterized. Recommend correlation with ultrasound to exclude solid mass. Gallbladder is moderately distended. The pancreas is atrophic with fatty repla cement. The adrenal glands are unremarkable. Small fat-containing umbilical hernia. There is a Posadas catheter present in the bladder. There are radiation therapy implant seeds in the prostate bed. Colon ic diverticulosis without evidence for diverticulitis. No free air or free fluid. Bladder is not well distended for evaluation of bladder wall thickening. Moderate lumbar spondylosis. IMPRESSION: 1. Moderate gallbladder distention, nonspecific. 2: Small subcentimeter hypodensity of the left kidney posteriorly. Consider correlation with ultrasou nd on a nonemergent basis. Reviewed, dictated and finalized at location A. IMPRESSION: 1. Moderate gallbladder distention, nonspecific. 2: Small subcentimeter hypodensity of the left kidney posteriorly. Consider cor relation with ultrasound on a nonemergent basis.
--- NOTE | ~2023-06-06 | XR_ITS ---
XR hip RT 2V w AP pelvis 06/06/2023 09:27 Indication: Right hip pain. Recurring falls. Procedure: AP pelvis and 2 views right hip Comparison: 12/30/2013 Findings: There is moderate osteoarthritis of the hips. Pelvic rings are intact. There are surgical c hanges of the pelvis. Sacral foramen are symmetric. No fracture or traumatic malalignment. Impression: 1: No acute fracture. Reviewed, dictated and finalized at location A. Impression: 1: No acute fracture.
--- NOTE | 2023-06-06 08:32 | ECG_ITS ---
Measurements Intervals [place] Rate: 101 P: [place]: 0 QRS: -31 QRSD: 92 T: 43 QT: 321 QTc: 417 Interpretive Statements ATRIAL FIBRILLATION WITH RAPID VENTRICULAR RESPONSE VENTRICULAR PREMATURE COMPLEXES BASELINE ARTIFACT- II, V5 ABNORMAL ECG COMPARED TO ECG 04/07/2023 18:46:01 HEART RATE HAS DECREASED LEFT-AXIS DEVIATION NOW PRESENT Electronically Signed On 06-06-2023 14:39:07 CDT by Dioni Vaca D.O.
--- NOTE | 2023-06-06 09:11 | ED.GENADULT ---
HPI - General Adult General Chief complaint: Unspecified Stated complaint: hip pain Time Seen by Provider: 06/06/23 08:38 History of Present Illness HPI narrative: 82-year-old male with history of A-fib with RVR on Eliquis and diltiazem presented the ED for evaluation of increased generalized weakness. Patient states over the last few weeks he has had worsening lower extremity weakness. Patient does states he has had some falls but denies striking his head. Patient does report frequent urinary incontinence but denies any prior history of enlarged prostate. Related Data Home Medications Medication Instructions Recorded Confirmed gabapentin 600 mg tablet 600 mg PO DAILY 02/03/23 05/15/23 Allergies Allergy/AdvReac Type Severity Reaction Status Date / Time No Known Allergies Allergy Verified 05/15/23 11:31 Review of Systems Review of Systems: All systems reviewed & are unremarkable except as noted in HPI and below PMFSH Past Medical History Medical History Aortic atherosclerosis Arthritis CKD (chronic kidney disease), stage III Degenerative joint disease of knee DISH (diffuse idiopathic skeletal hyperostosis) DVT (deep venous thrombosis) MAINOR (generalized anxiety disorder) History of basal cell carcinoma Hypertensive chronic kidney disease with stage 1 through stage 4 chronic kidney disease, or unspecified chronic kidney disease Left knee DJD Leukopenia Right knee DJD SOB (shortness of breath) Spastic colon Ulcer Surgical History Surgical History History of colonoscopy History of esophagogastroduodenoscopy History of partial colectomy For colon mass Family History Family History Sibling Patient's sister is in good health Father Family history of coronary artery disease Patient's father is in good health Mother Patient's mother is in good health Other Cerebrovascular accident Diabetes mellitus Hypertension Social History Social History Smoking status: Never smoker Second hand tobacco smoke exposure: No Additional smoking assessment comments: denies use of tobacco Alcohol intake: never Substance use: never Substance use type: does not use Other substance usage details: denies alcohol and substance use Lack of Transportation: No Lack of Food: Sometimes True Current Housing: I Have Housing Concerned About Future Housing: No Difficulty Paying Gas/Electric Bills: No Difficulty Paying for Meds: No Currently Unemployed: No Education: Trade/Vocational Certificate Difficulty w/ Childcare or Family Care: No Living arrangements: with family Additional living arrangements comments: LIVES W/ Occupation/Education: retired Gender identity (if verbalized by the patient): Male Sexual Orientation (if Verbalized by the Patient): Straight or Heterosexual Spiritual care concerns: No Exam Narrative: APPEARANCE: Well appearing, no pain, no distress, well-nourished. HEAD: normocephalic, atraumatic. EYES: PERRLA/EOMI, conjunctivae clear. NOSE: Normal no drainage NECK: Supple. No adenopathy, no masses. RESPIRATORY: Airway patent, respirations nonlabored. Clear to auscultation bilaterally, no rales, rhonchi, wheezing. CARDIOVASCULAR: Regular rate and rhythm without murmurs rubs or gallops. ABDOMINAL: Soft, nontender, nondistended, normal bowel sounds MUSCULOSKELETAL: Moves all extremities. Tenderness to palpation of right hip with no deformity or crepitus NEURO: Alert. Cranial nerves II through XII intact. Grossly intact SKIN: Warm, dry. Normal Color Course Course Emergency Course: 82-year-old male presented emergency department for evaluation of right hip pain and urinary incontinence. Patient is afebrile with
[2023-06-06 09:44] LABS: Basophils Percent Auto 0.8 % (0.2-1.2); Eosinophils Percent Auto 0.6 % (0-4.4); Hematocrit 47.8 % (42.0-52.0); Hemoglobin 15.8 g/dL (14.0-18.0); Lymphocytes Percent Auto 11.6 % (18.3-44.2); Mean Corpuscular HGB Conc 33.1 g/dl (32-36); Mean Corpuscular Volume 99.8 fl (80-100); Mean Platelet Volume 9.3 fl (7.4-10.4); Monocytes Absolute Auto 0.5 K/mm3 (0.1-0.6); Monocytes Percent Auto 9.4 % (2.6-8.5); Neutrophils Percent Auto 77.6 % (45.5-73.1); Platelet Count Result 151 k/mm3 (150-375); Red Blood Count 4.79 M/mm3 (4.6-6.20); Red Cell Distribution Width 12.7 % (11.5-14.5); White Blood Count 5.2 K/mm3 (4.5-10.0)
[2023-06-06 09:55] LABS: INR 1.2; Prothrombin Time 15.7 Seconds (11.1-14.7)
[2023-06-06 09:56] LABS: Alanine Aminotransferase 20 U/L (6-50); Albumin Level 4.2 g/dL (3.5-5.1); Alkaline Phosphatase 58 U/L (38-126); Anion Gap 7 mmol/L (8-16); Aspartate Amino Transferase 28 U/L (17-59); Bilirubin,Total 1.4 mg/dL (0.2-1.3); Blood Urea Nitrogen 32 mg/dL (9-20); Calcium 9.1 mg/dL (8.4-10.2); Carbon Dioxide 26 mmol/L (22-30); Chloride 105 mmol/L (98-107); Estimated CRCL calculation 56 ml/min; Estimated Glomerular Filt Rate 53; Glucose 95 mg/dL (65-110); Partial Thromboplastin Time 33.1 SECONDS (22.3-36.8); Potassium 4.1 mmol/L (3.4-5.0); Sodium 138 mmol/L (137-145)
[2023-06-06 11:17] LABS: Influenza A QL RT-PCR Negative (Negative); Influenza B QL RT-PCR Negative (Negative); RSV RNA, RT-PCR Negative (Negative); SARS-CoV-2 RNA PCR Negative (Negative)
[2023-06-06 11:18] LABS: Appearance Urine Clear (Clear); Bacteria Urine None Seen /hpf; Bilirubin Urine Negative (Negative); Blood Urine 2+ (Negative); Color Urine Yellow (Yellow); Glucose Urine UA Negative (Negative); Ketones Urine Trace mg/dL (Negative); Leukocyte Esterase Ur Negative LEU/UL (Negative); Need Manual Microscopic Reviewed; Nitrate Urine Negative (Negative); Non Pathogenic Casts 0-2; Protein Urine Trace mg/dL (Negative); Specific Grav Ur 1.015 (1.001-1.035); Squamous Epithelial Cell Urine None seen /hpf (Few); WBC Urine 0-5 /hpf
[2023-06-06 11:20] LABS: Add Urine Microscopic? YES
[2023-06-06] MEDS: TAMSULOSIN HCL 0.4 MG CAPSULE PO (13:22)
== END 2023-06-06 14:15 | disposition home or self-care (01) ==
PROVIDERS: Emergency Provider Emergency Medicine; PCP Family Medicine
DX: M25.551 Pain in right hip (principal); R33.9 Retention of urine, unspecified; R31.9 Hematuria, unspecified; Z20.822 Contact with and (suspected) exposure to COVID-19; I48.91 Unspecified atrial fibrillation; I12.9 Hypertensive chronic kidney disease with stage 1 through stage 4 chronic kidney disease, or unspecified chronic kidney disease; N18.30 Chronic kidney disease, stage 3 unspecified; I70.0 Atherosclerosis of aorta; M17.0 Bilateral primary osteoarthritis of knee; Z86.718 Personal history of other venous thrombosis and embolism; Z85.828 Personal history of other malignant neoplasm of skin; M48.10 Ankylosing hyperostosis [Forestier], site unspecified; Z90.49 Acquired absence of other specified parts of digestive tract; Z79.01 Long term (current) use of anticoagulants; I49.3 Ventricular premature depolarization; R93.2 Abnormal findings on diagnostic imaging of liver and biliary tract; R93.422 Abnormal radiologic findings on diagnostic imaging of left kidney
CPT/HCPCS: 36415; 70450; 73502; 74176; 80053; 81001; 85025; 85610; 85730; 87637; 93005; 99284; A9270

== ENCOUNTER 2023-06-12 12:15 | Inpatient (IN) | payer MEDICARE, SELFPAY ==
[2023-06-12] VITALS (13 sets, daily range): BP systolic 90–126; BP diastolic 48–82; PULSE 72–92; RESP 12–19; TEMP 36.2–36.6; O2SAT 96–100; BMI 30.8
--- NOTE | ~2023-06-12 | US_ITS ---
EXAMINATION: US carotid duplex BI DATE: 06/13/2023 11:23 INDICATION: Transient alteration of awareness TECHNIQUE: Grayscale, color Doppler, and pulsed Doppler images of the cervical carotid arteries were obtained. The degree of vessel stenosis is placed in one of the following categories: normal, <50%, 5 0-69%, >=70% but less than near-occlusion, near-occlusion, or total occlusion. Note that percent sten osis relative to normal distal artery lumen diameter is indirectly measured from velocity measurement s as described by Charlie, et al. Radiology 2003; 229:340-346. COMPARISON: None. FINDINGS: The heart rate is irregularly irregular, consistent with atrial fibrillation. RIGHT: The right common carotid artery (CCA) peak systolic velocity (PSV) is 72 cm/s. The right internal car otid artery (ICA) PSV is 60 cm/s. The right ICA end-diastolic velocity (EDV) is 16 cm/s. The right IC A/CCA PSV ratio is 0.8. Grayscale and color Doppler images yield an estimate of less than 50% diamete r reduction from plaque in the ICA. The external carotid artery (ECA) PSV is 75 cm/s. There is antegr donald flow in the right vertebral artery. LEFT: The left CCA PSV is 52 cm/s. The left ICA PSV is 92 cm/s. The left ICA EDV is 25 cm/s. The left ICA/C CA PSV ratio is 1.8. Grayscale and color Doppler images yield an estimate of less than 50% diameter r eduction from plaque in the ICA. The ECA PSV is 57 cm/s. There is antegrade flow in the left vertebra l artery. IMPRESSION: 1. <50% stenosis in the right internal carotid artery. 2. <50% stenosis in the left internal carotid artery. Reviewed, dictated and finalized at location F.
--- NOTE | ~2023-06-12 | XR_ITS ---
XR chest 1V portable 06/12/2023 14:11 Indication: Status post chest compressions. Syncope. Procedure: AP portable chest Comparison: Comparison to multiple prior studies sequentially, with oldest reviewed study dated 06/15. Findings: Heart size is normal. No focal air space disease, pulmonary edema, pleural effusion or susp ected pneumothorax. No acute osseous abnormality. Impression: 1: No acute cardiopulmonary disease. Reviewed, dictated and finalized at location B. Impression: 1: No acute cardiopulmonary disease.
--- NOTE | ~2023-06-12 | CT_ITS ---
EXAMINATION: CT pelvis wo con DATE: 06/15/2023 12:28 INDICATION: Right groin pain. TECHNIQUE: Computed tomography (CT) of the pelvis was performed without intravenous contrast. Automat ed exposure control and iterative reconstruction technique were employed. The dose-length product was 960.67 mGy-cm. COMPARISON: CT abdomen and pelvis 06/06/2023 FINDINGS: Stool distends the rectum. The prostate is mildly enlarged. There are no pathologically enl arged lymph nodes. There is trace ascites. There is severe lumbar spondylosis. There is moderate oste oarthritis of the hips. IMPRESSION: 1. Stool distends the rectum. Reviewed, dictated and finalized at location E.
--- NOTE | 2023-06-12 12:21 | ECG_ITS ---
Measurements Intervals [place] Rate: 88 P: [place]: 0 QRS: -24 QRSD: 92 T: 29 QT: 365 QTc: 442 Interpretive Statements ATRIAL FIBRILLATION VOLTAGE CRITERIA FOR LVH ABNORMAL ECG COMPARED TO ECG 06/06/2023 08:30:55 HEART RATE HAS DECREASED Electronically Signed On 06-12-2023 12:31:58 CDT by Dioni Vaca D.O.
[2023-06-12 12:43] LABS: Basophils Percent Auto 0.5 % (0.2-1.2); Eosinophils Absolute Auto 0.1 K/mm3 (0-0.3); Eosinophils Percent Auto 0.9 % (0-4.4); Hematocrit 46.8 % (42.0-52.0); Hemoglobin 15.5 g/dL (14.0-18.0); Immature Granulocyte Absolute 0.04 K/mm3 (0.00-0.031); Immature Granulocyte Percent A 0.6 % (0-0.5); Lymphocytes Absolute Auto 0.52 K/mm3 (0.9-3.2); Mean Corpuscular HGB Conc 33.1 g/dl (32-36); Mean Corpuscular Volume 99.6 fl (80-100); Mean Platelet Volume 9.3 fl (7.4-10.4); Monocytes Absolute Auto 0.6 K/mm3 (0.1-0.6); Monocytes Percent Auto 9.4 % (2.6-8.5); Neutrophils Absolute Auto 5.2 K/mm3 (1.3-6.7); Neutrophils Percent Auto 80.6 % (45.5-73.1); Platelet Count Result 145 k/mm3 (150-375); Red Cell Distribution Width 12.7 % (11.5-14.5); White Blood Count 6.5 K/mm3 (4.5-10.0)
[2023-06-12 12:54] LABS: Alanine Aminotransferase 18 U/L (6-50); Albumin Level 4.4 g/dL (3.5-5.1); Alkaline Phosphatase 70 U/L (38-126); Anion Gap 9 mmol/L (8-16); Aspartate Amino Transferase 22 U/L (17-59); Bilirubin,Total 1.3 mg/dL (0.2-1.3); Blood Urea Nitrogen 36 mg/dL (9-20); Calcium 9.2 mg/dL (8.4-10.2); Carbon Dioxide 25 mmol/L (22-30); Chloride 105 mmol/L (98-107); Estimated CRCL calculation 43 ml/min; Estimated Glomerular Filt Rate 39; Glucose 120 mg/dL (65-110); Potassium 3.9 mmol/L (3.4-5.0); Sodium 139 mmol/L (137-145)
[2023-06-12 13:03] LABS: Troponin I 0.013 ng/mL (0.000-0.034)
--- NOTE | 2023-06-12 14:00 | ED.DIZZY ---
HPI - Dizziness General Chief Complaint: Syncope Stated Complaint: syncopal Time Seen by Provider: 06/12/23 13:28 History of Present Illness HPI Narrative: Patient is an 82-year-old male with a history of A-fib on Eliquis presenting after a syncopal episode. Patient states that he was at the doctor's appointment this morning to have his Posadas catheter exchanged. His is at bedside and helps with the history. States that while they were waiting he seemed to doze off in his chair. She was unable to wake him so she notified staff who are also unable to wake him. They were reportedly unable to feel a pulse so they put him on the ground and started compressions which is when he woke up. States that he remembers being moved to the stretcher but he otherwise does not remember any details. He denies any chest pain or shortness of breath. States that he has been feeling well lately. Complains of chronic bilateral lower extremity weakness and swelling Related Data Home Medications Medication Instructions Recorded Confirmed gabapentin 600 mg tablet 600 mg PO DAILY 02/03/23 06/12/23 Allergies Allergy/AdvReac Type Severity Reaction Status Date / Time No Known Allergies Allergy Verified 06/12/23 12:31 Review of Systems Review of Systems: All systems reviewed & are unremarkable except as noted in HPI and below PMFSH Past Medical History Medical History (Updated 06/18/23 @ 00:17 by Amanda Lujan MD) Aortic atherosclerosis Arthritis CKD (chronic kidney disease), stage III Degenerative joint disease of knee DISH (diffuse idiopathic skeletal hyperostosis) DVT (deep venous thrombosis) MAINOR (generalized anxiety disorder) History of basal cell carcinoma Hypertensive chronic kidney disease with stage 1 through stage 4 chronic kidney disease, or unspecified chronic kidney disease Left knee DJD Leukopenia Right knee DJD SOB (shortness of breath) Spastic colon Ulcer Urinary retention Surgical History Surgical History History of colonoscopy History of esophagogastroduodenoscopy History of partial colectomy For colon mass Family History Family History Sibling Patient's sister is in good health Father Family history of coronary artery disease Patient's father is in good health Mother Patient's mother is in good health Other Cerebrovascular accident Diabetes mellitus Hypertension Social History Social History Social History: Currently lives at with his , Taty. Plans to move near [place] within the next month. Surrogate decisionmaker: Taty, Code: Full Code He is currently retired - international marketing manager of [employer] Smoking status: Never smoker Second hand tobacco smoke exposure: No Additional smoking assessment comments: denies use of tobacco Alcohol intake: never Substance use: never Substance use type: does not use Other substance usage details: denies alcohol and substance use Lack of Transportation: No Lack of Food: Sometimes True Current Housing: I Have Housing Concerned About Future Housing: No Difficulty Paying Gas/Electric Bills: No Difficulty Paying for Meds: No Currently Unemployed: No Education: Trade/Vocational Certificate Difficulty w/ Childcare or Family Care: No Living arrangements: with family Additional living arrangements comments: LIVES W/ Occupation/Education: retired Gender identity (if verbalized by the patient): Male Sexual Orientation (if Verbalized by the Patient): Straight or Heterosexual Spiritual care concerns: No Exam Narrative: GENERAL: Well-appearing, no acute distress, pleasant and cooperative HEAD: Normocephalic, atraumatic. EYES: PERRLA and EOMI. ENT: Nares clear, no rhinorrhea or epistaxis. Mucous membranes mois
[2023-06-12 15:20] LABS: Appearance Urine Cloudy (Clear); Bacteria Urine None Seen /hpf; Bilirubin Urine 1+ (Negative); Blood Urine 3+ (Negative); Color Urine Dark Yellow (Yellow); Glucose Urine UA Negative (Negative); Hyaline Casts Urine Present /lpf; Ketones Urine 1+ mg/dL (Negative); Leukocyte Esterase Ur 1+ LEU/UL (Negative); Need Manual Microscopic Reviewed; Nitrate Urine Negative (Negative); Protein Urine 2+ mg/dL (Negative); RBC Urine >100 /hpf (0-2); Specific Grav Ur 1.024 (1.001-1.035); Squamous Epithelial Cell Urine Occasional /hpf (Few); WBC Urine 21-50 /hpf
[2023-06-12 15:23] LABS: Add Urine Microscopic? YES
[2023-06-12 15:47] LABS: Magnesium 2.4 mg/dL (1.6-2.3)
[2023-06-12] MEDS: SODIUM CHLORIDE 0.9% IV 500 ML 999 ML IV CONT (15:49)
[2023-06-12 15:57] LABS: NT Pro B Type Natriuretic Pept 712 pg/mL (19.9-100)
--- NOTE | 2023-06-12 16:50 | PC.NURSE ---
PT INADVERTENTLY PULLED OUT HIS IV WHILE ON THE BEDSIDE COMMODE FOR A BM. BLEEDING CONTROLLED,PT CLEANED UP AND PLACED BACK INTO BED. NOTED REDNESS AND EXCORIATION TO GLUTEAL CLEFT. PT STATES HAS FECAL INCONTINENCE AND USES ADULT DIAPERS. NEW IV PLACED TO L AC. UNABLE TO DOCUMENT IN IV SECTION DUE TO IT BEING IN SAME AREA OF ARM.
[2023-06-12 17:17] LABS: Troponin I < 0.012 ng/mL (0.000-0.034)
--- NOTE | 2023-06-12 17:35 | ADMGEN ---
This patient, Abdias Hills, was admitted to 3 [facility] Surg Room 303-01 @ 1735. Patient/family oriented to hospital policies and general routines including ID bracelet, bed and alarms, visiting hours, pain management, procedures, bathroom and other care routines, personal items, smoking policy, room service/diet, and visiting hours. Information on how to activate the Rapid Response Team has been discussed. Patient/Family are encouraged to report perceived risks to care and to ask questions if they do not understand what they are told or what they should do.
--- NOTE | 2023-06-12 18:20 | PC.NURSE ---
Pt's son called requesting an update on pt. Pt's son was asking if this RN knew the timeline for the pt's discharge. The pt was admitted to [facility] at 1735 today. The pt had not been assessed by the hospitalist, on this floor, prior to the phone call. This RN communicated this to the pt's son and offered to update the pt's son after the pt was evaluated by the MD.
[2023-06-13] VITALS (10 sets, daily range): BP systolic 126–134; BP diastolic 74–90; PULSE 77–102; RESP 16–18; TEMP 36.4–36.6; O2SAT 97–99
--- NOTE | 2023-06-13 00:09 | PM.IMHP ---
H&P: HPI History of Present Illness Date/Time: 06/13/23 00:09 Chief Complaint: Syncope Narrative: 82 y/o M presents here with syncope with PMH of A-Fib, Urinary Retention, CKD, basal cell carcinoma, and DISH. Patient presents here after syncopal episode while waiting for urology appointment. Patient reports sitting in the waiting room when he became unresponsive. Per bystander report, patient slumped over and did not wake up to multiple times of stimuli. Staff was alerted and they were able to move patient to the floor, unable to palpate a pulse, compressions initiated and patient woke up. However patient does not remember events, reports remembering sitting in the waiting room and then waking to EMS moving him over to the stretcher. No chest pain, shortness a breath, stroke-like symptoms, recent illness, N/V/D, or changes to medications. Patient is continuing to endorse some mild confusion, difficulty remembering events. He is concerned he passed out due to pain of Posadas and getting worked up . One similar episode approximately approved ago. Workup did not reveal anything. Patient has not worn an event monitor. Does report having increased fatigue over the last few weeks to months. He denies any recent weight loss or night sweats. History obtained from patient and chart review. Review of Systems Review of Systems: All systems reviewed & are unremarkable except as noted in HPI and below [facility] Past Medical History Medical History (Updated 06/13/23 @ 00:21 by Megan Arana APRN) Aortic atherosclerosis Arthritis CKD (chronic kidney disease), stage III Degenerative joint disease of knee DISH (diffuse idiopathic skeletal hyperostosis) DVT (deep venous thrombosis) MAINOR (generalized anxiety disorder) History of basal cell carcinoma Hypertensive chronic kidney disease with stage 1 through stage 4 chronic kidney disease, or unspecified chronic kidney disease Left knee DJD Leukopenia Right knee DJD SOB (shortness of breath) Spastic colon Ulcer Urinary retention Surgical History Surgical History History of colonoscopy History of esophagogastroduodenoscopy History of partial colectomy For colon mass Family History Family History Sibling Patient's sister is in good health Father Family history of coronary artery disease Patient's father is in good health Mother Patient's mother is in good health Other Cerebrovascular accident Diabetes mellitus Hypertension Social History Social History (Updated 06/13/23 @ 00:18 by Megan Arana APRN) Social History: Currently lives at with his , Taty. Plans to move near [place] within the next month. Surrogate decisionmaker: Taty, Code: Full Code He is currently retired - manager ecommerce of [employer] Smoking status: Never smoker Second hand tobacco smoke exposure: No Additional smoking assessment comments: denies use of tobacco Alcohol intake: never Substance use: never Substance use type: does not use Other substance usage details: denies alcohol and substance use Lack of Transportation: No Lack of Food: Sometimes True Current Housing: I Have Housing Concerned About Future Housing: No Difficulty Paying Gas/Electric Bills: No Difficulty Paying for Meds: No Currently Unemployed: No Education: Trade/Vocational Certificate Difficulty w/ Childcare or Family Care: No Living arrangements: with family Additional living arrangements comments: LIVES W/ Occupation/Education: retired Gender identity (if verbalized by the patient): Male Sexual Orientation (if Verbalized by the Patient): Straight or Heterosexual Spiritual care concerns: No Meds Home Medications and Allergies Home Medications Medication Instructions Recorded Confirmed Type meloxicam 7.5 mg tablet 7.5
--- NOTE | 2023-06-13 06:00 | PC.NURSE ---
Telephone update to Joshua Goldstein, son. Informed son of events overnight and plan of care for the day. Son informed this RN that the pt was having diarrhea on the and and took Imodium on the 06/12.
[2023-06-13] MEDS: TAMSULOSIN HCL 0.4 MG CAPSULE PO (08:43)
[2023-06-13] MEDS: busPIRone HCL 10 MG TABLET 20 MG PO ×2 (08:43→17:09)
[2023-06-13] MEDS: dilTIAZem HCL CD 180 MG CAP.24HR PO (08:43)
[2023-06-13] MEDS: busPIRone HCL 2.5 MG TABLET PO ×2 (08:43→17:09)
[2023-06-13] MEDS: APIXABAN 5 MG TABLET PO ×2 (08:47→20:35)
--- NOTE | 2023-06-13 08:49 | PM.CNCAR ---
Assessment and Plan Assessment and plan (1) Atrial fibrillation: Qualifiers: Atrial fibrillation type: unspecified Qualified Code(s): I48.91 - Unspecified atrial fibrillation Code(s): I48.91 - Unspecified atrial fibrillation Status: Acute Plan This is an 82-year-old man with chronic atrial fibrillation being managed with diltiazem for rate control and apixaban for systemic anticoagulation. He has no history of any other cardiac problems. Since admission his telemetry demonstrates stable rate controlled atrial fibrillation. The nursing staff asking me this morning it is reasonable for the patient to travel to [place] with his family. Apparently they had been planning to move the patient and his to [place] to live with them for assistance as they have become elderly and frail. The patient's rhythm has been quite stable for the last 24 hours we do not really have a cardiac explanation for the events of yesterday. There is no evidence of an acute coronary syndrome. In my opinion it is reasonable for them to travel with this patient in the car to [place] today if that is their plan. Apparently they had these plans made for some time. Assuming that this is their plan in this is will occur today I will cancel further follow-up appointments with our office regarding his atrial fibrillation since he will be living in [place] Ross Malik MD [facility] History of Present Illness History of Present Illness Consult date/time: 06/13/23 08:49 Reason For Visit: snycope Narrative: This is a 82-year-old man I am seeing at the request of the hospitalist because of a reported syncopal episode which occurred yesterday afternoon. The patient is known to me from a recent consultation in the hospital at the end of March of this year. His cardiac history is that he has atrial fibrillation being managed with rate control and anticoagulation. He follows in our office by my partner, Dr. Valle. The patient was in the office of his urologist on this campus yesterday to have his appointment regarding indwelling Posadas catheter. . The patient states that he had a Posadas catheter placed about a week ago but he can not really tell me what the reason for it was. While he was in the waiting room his is sitting next to him apparently noted that he had become unresponsive. Help was summoned apparently he was found not to have a pulse he was laid on the floor and CPR was initiated. Shortly after that he regained responsiveness and was brought to the emergency room. From what I can see he did not require defibrillation and there was not any recording of a cardiac rhythm at the time he was unresponsive. In any event he went to the emergency room where his evaluation was essentially unrevealing and he was admitted to the hospital. The patient has a history of atrial fibrillation for a number of years which was initially managed with rhythm control with amiodarone and anticoagulation. He had weakness of his lower extremities a couple of years ago which was suspicious for amiodarone related peripheral neuropathy and so his amiodarone was discontinued. When I saw the patient in March of this year he was back in persistent atrial fibrillation but was totally asymptomatic with the arrhythmia. As result of that rate for rate control and anticoagulation strategy was recommended. He his calcium channel oneida was moved from amlodipine to diltiazem to slow AV node conduction this resulted in a very good heart rate control and he was dismissed. Since being admitted yesterday on telemetry his recordings demonstrate atrial fib with good rate control there have been no instances of undue tachycardia or bradycardia there have been no pauses identified. He is asymptomatic at this time and offers no complaints. He has very poor memory for the events of yesterday and also seems to have a very poor memory regarding his history in general since he can not remember th
--- NOTE | 2023-06-13 09:04 | WPDURCON ---
Assessment and Plan Assessment and plan (1) Enlarged prostate without lower urinary tract symptoms (luts): Code(s): N40.0 - Benign prostatic hyperplasia without lower urinary tract symptoms Status: Acute (2) John catheter in place on admission: Code(s): Z97.8 - Presence of other specified devices Status: Acute (3) FLOWER (acute kidney injury): Code(s): N17.9 - Acute kidney failure, unspecified Status: Acute (4) Urinary retention: Code(s): R33.9 - Retention of urine, unspecified Status: Acute Assessment and Plan: He had Urolift in past recnet retention and foely replaced yesterday Rec leaving john for now as just changed and patient with family wanting to proceed with move to [place]. He would need a trial of voiding and urology care in [place]---would be against removing john directly before leaving this area not knowing if he is able to void. This new catheter can be left in place upto 6 weeks Urology Consult Note HPI Date Seen: 06/13/23 Requesting Physician: Anant Cornelius MD Primary Care Provider: Kayode Esquivel MD Consult Narrative Narrative: Abdias Hills is a 82 year old male SP Urolift in past and had syncopal episode in our office for john removal OV. Had retention. He is poor historian. John changed yesterday in ER. Draining well and patient is comfortable, mild complaints of meatal discomfort. Review of Systems Review of Systems: Reports poor memory of recent events and he is cooperative and in no distress PMFSH Past Medical History Medical History (Updated 06/13/23 @ 09:10 by Bari Watson MD) Aortic atherosclerosis Arthritis CKD (chronic kidney disease), stage III Degenerative joint disease of knee DISH (diffuse idiopathic skeletal hyperostosis) DVT (deep venous thrombosis) MAINOR (generalized anxiety disorder) History of basal cell carcinoma Hypertensive chronic kidney disease with stage 1 through stage 4 chronic kidney disease, or unspecified chronic kidney disease Left knee DJD Leukopenia Right knee DJD SOB (shortness of breath) Spastic colon Ulcer Urinary retention Surgical History Surgical History History of colonoscopy History of esophagogastroduodenoscopy History of partial colectomy For colon mass Family History Family History Sibling Patient's sister is in good health Father Family history of coronary artery disease Patient's father is in good health Mother Patient's mother is in good health Other Cerebrovascular accident Diabetes mellitus Hypertension Social History Social History Social History: Currently lives at with his , Taty. Plans to move near [place] within the next month. 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 [employer] Smoking status: Never smoker Second hand tobacco smoke exposure: No Additional smoking assessment comments: denies use of tobacco Alcohol intake: never Substance use: never Substance use type: does not use Other substance usage details: denies alcohol and substance use Lack of Transportation: No Lack of Food: Sometimes True Current Housing: I Have Housing Concerned About Future Housing: No Difficulty Paying Gas/Electric Bills: No Difficulty Paying for Meds: No Currently Unemployed: No Education: Trade/Vocational Certificate Difficulty w/ Childcare or Family Care: No Living arrangements: with family Additional living arrangements comments: LIVES W/ Occupation/Education: retired Gender identity (if verbalized by the patient): Male Sexual Orientation (if Verbalized by the Patient): Straight or Heterosexual Spiritual care concerns: No Meds Home Medications and
--- NOTE | 2023-06-13 10:33 | P.PNIM_ITS ---
Progress Note: A&P Assessment and Plan (1) Syncope and collapse: Code(s): R55 - Syncope and collapse Status: Acute (2) Posadas catheter in place on admission: Code(s): Z97.8 - Presence of other specified devices Status: Acute (3) FLOWER (acute kidney injury): Code(s): N17.9 - Acute kidney failure, unspecified Status: Acute Plan Problem List 1. Syncope and collapse * EKG impression ATRIAL FIBRILLATION Echocardiogram April 08, 2023 shows normal EF, no significant valvular disease * CXR Impression 1: No acute cardiopulmonary disease. * Troponin negative x2 * DD: vagal response due to pain, bradycardia. Less likely ACS, CVA, hypotension * BNP decreased from prior: 712, previously 989 on 04/07/23 * Order a carotid Doppler * consult cardiology given afib and needs to rule out cardiogenic syncope 2. Posadas catheter in place on admission * Posadas in place due to urinary retention, appointment today to discontinue per patient * Continue home tamsulosin * Consult urology for assessment of discontinuation, patient reporting pain at meatus 3. FLOWER on CKD * Creatinine currently 1.7, previously 1.3 on 06/06 * BUN currently 39, previously 53 on 06/06 * 500 mL bolus of NS in ED * Continue normal saline IV 100 mL/hour UTI * UA: Cloudy, 2+ protein, 1+ ketone, 3+ blood, 1+ bilirubin, 1+ leuk, greater than 100 RBC, 21-50 WBC. * UC pending, previously grew aerococcus urinae in 2020 and enterococcus species in 2018 * WBC WNL, trend CBC and BMP s/w ceftriaxone 1 g IV daily Chronic Conditions -continue home Tylenol p.r.n., BuSpar -AFib: continue home med -Eliquis, diltiazem. -HTN: Continue home medication - lisinopril -DISH: Continue home medication - gabapentin, meloxicam Diet: Heart healthy GI Prophylaxis: Not currently indicated DVT Prophylaxis: SCDs, currently on Eliquis Lines: pIV Code Status: Full Code Subjective Date/time seen: 06/13/23 10:33 Interval history: I saw and examined patient today, patient denies dizziness, chest pain, palpitation, a pain, nausea vomiting diarrhea dysuria Exam Narrative: GENERAL: Pleasant, in no acute distress. Well-nourished. - EYES: EOMI. Anicteric. - HENT: Moist mucous membranes. - LUNGS: Clear to auscultation bilateral ly, no wheezing, rhonchi, or rales. - CARDIOVASCULAR: Regular rate and rhyth m. No murmur. No JVD. - ABDOMEN: Soft, non-tender and non-dist ended. No palpable masses. - EXTREMITIES: No edema. Peripheral puls es 2+. Non-tender. - NEUROLOGIC: No focal neurological defi cits. CN II-XII grossly intact. - PSYCHIATRIC: Awake, Alert and oriented x 3. Appropriate mood and affect. - SKIN: No rashes or lesions. Warm. - LYMPH: No cervical lymphadenopathy. Objective Data Vital Signs Vital Signs: Vital Signs - 24 hr 06/12/23 12:14 06/12/23 12:15 06/12/23 12:21 Temperature 97.8 F Pulse Rate 83 78 Respiratory Rate 16 12 Blood Pressure 111/76 111/76 Pulse Oximetry 97 96 Oxygen Delivery
--- NOTE | 2023-06-13 10:33 | PM.IMPN ---
Progress Note: A&P Assessment and Plan (1) Syncope and collapse: Code(s): R55 - Syncope and collapse Status: Acute (2) Posadas catheter in place on admission: Code(s): Z97.8 - Presence of other specified devices Status: Acute (3) FLOWER (acute kidney injury): Code(s): N17.9 - Acute kidney failure, unspecified Status: Acute Plan Problem List 1. Syncope and collapse EKG impression ATRIAL FIBRILLATION Echocardiogram April 08, 2023 shows normal EF, no significant valvular disease CXR Impression 1: No acute cardiopulmonary disease. Troponin negative x2 DD: vagal response due to pain, bradycardia. Less likely ACS, CVA, hypotension BNP decreased from prior: 712, previously 989 on 04/07/23 Order a carotid Doppler consult cardiology given afib and needs to rule out cardiogenic syncope 2. Posadas catheter in place on admission Posadas in place due to urinary retention, appointment today to discontinue per patient Continue home tamsulosin Consult urology for assessment of discontinuation, patient reporting pain at meatus 3. FLOWER on CKD Creatinine currently 1.7, previously 1.3 on 06/06 BUN currently 39, previously 53 on 06/06 500 mL bolus of NS in ED Continue normal saline IV 100 mL/hour UTI UA: Cloudy, 2+ protein, 1+ ketone, 3+ blood, 1+ bilirubin, 1+ leuk, greater than 100 RBC, 21-50 WBC. UC pending, previously grew aerococcus urinae in 2020 and enterococcus species in 2018 WBC WNL, trend CBC and BMP s/w ceftriaxone 1 g IV daily Chronic Conditions -continue home Tylenol p.r.n., BuSpar -AFib: continue home med -Eliquis, diltiazem. -HTN: Continue home medication - lisinopril -DISH: Continue home medication - gabapentin, meloxicam Diet: Heart healthy GI Prophylaxis: Not currently indicated DVT Prophylaxis: SCDs, currently on Eliquis Lines: pIV Code Status: Full Code Subjective Date/time seen: 06/13/23 10:33 Interval history: I saw and examined patient today, patient denies dizziness, chest pain, palpitation, a pain, nausea vomiting diarrhea dysuria Exam Narrative: GENERAL: Pleasant, in no acute distress. Well-nourished. - EYES: EOMI. Anicteric. - HENT: Moist mucous membranes. - LUNGS: Clear to auscultation bilaterally, no wheezing, rhonchi, or rales. - CARDIOVASCULAR: Regular rate and rhythm. No murmur. No JVD. - ABDOMEN: Soft, non-tender and non-distended. No palpable masses. - EXTREMITIES: No edema. Peripheral pulses 2+. Non-tender. - NEUROLOGIC: No focal neurological deficits. CN II-XII grossly intact. - PSYCHIATRIC: Awake, Alert and oriented x 3. Appropriate mood and affect. - SKIN: No rashes or lesions. Warm. - LYMPH: No cervical lymphadenopathy. Objective Data Vital Signs Vital Signs: Vital Signs - 24 hr 06/12/23 12:14 06/12/23 12:15 06/12/23 12:21 Temperature 97.8 F Pulse Rate 83 78 Respiratory Rate 16 12 Blood Pressure 111/76 111/76 Pulse Oximetry 97 96 Oxygen Delivery Room Air Room Air 06/12/23 13:41 06/12/23 13:46 06/12/23 14:01 Temperature Pulse Rate 80 79 74 Respiratory Rate 19 16 16 Blood Pressure 103/66 112/64 116/68 Pulse Oximetry 98 99 98 Oxygen Delivery 06/12/23 14:16 06/12/23 14:30 06/12/23 16:00 Temperature Pulse Rate 76 72 76 Respiratory Rate 16 16 16 Blood Pressure 90/48 L 103/69 126/82 Pulse Oximetry 99 97 97 Oxygen Delivery 06/12/23 15:30 06/12/23 17:15 06/12/23 17:50 Temperature 97.2 F L Pulse Rate 75 80 86 Respiratory Rate 16 16 16 Blood Pressure 113/78 109/71 109/70 Pulse Oximetry 100 97 99 Oxygen Delivery 06/12/23 17:40 06/12/23 21:15 06/12/23 20:00 Temperature 97.6 F Pulse Rate 92 74 Respiratory Rate 16 Blood Pressure 100/61 Pulse Oximetry 97 Oxygen Delivery Room Air 06/13/23 00:00 06/13/23 04:36 06/13/23 04:00 Temperature 97.6 F Pulse Rate 87 90 82 Respiratory Rate 16 Blood Pressure 134/85 Pulse Oximetry 97 Oxygen Delivery
[2023-06-13] MEDS: SODIUM CHLORIDE 0.9% IV 1,000 ML 100 ML IV CONT (15:21)
[2023-06-13] MEDS: lisinopriL 20 MG TABLET PO (20:35)
[2023-06-14] VITALS (8 sets, daily range): BP systolic 142–148; BP diastolic 82–95; PULSE 73–100; RESP 14–16; TEMP 36.2–36.3; O2SAT 98–100
[2023-06-14 06:28] LABS: Hematocrit 42.2 % (42.0-52.0); Hemoglobin 14.1 g/dL (14.0-18.0); Mean Corpuscular HGB Conc 33.4 g/dl (32-36); Mean Corpuscular Hemoglobin 32.6 pg (26-34); Mean Corpuscular Volume 97.7 fl (80-100); Mean Platelet Volume 9.5 fl (7.4-10.4); Platelet Count Result 161 k/mm3 (150-375); Red Blood Count 4.32 M/mm3 (4.6-6.20); Red Cell Distribution Width 12.3 % (11.5-14.5)
[2023-06-14] MEDS: SODIUM CHLORIDE 0.9% IV 1,000 ML 100 ML IV CONT (06:42)
[2023-06-14 06:43] LABS: Anion Gap 3 mmol/L (8-16); Blood Urea Nitrogen 24 mg/dL (9-20); Calcium 8.2 mg/dL (8.4-10.2); Carbon Dioxide 28 mmol/L (22-30); Chloride 107 mmol/L (98-107); Estimated CRCL calculation 60 ml/min; Estimated Glomerular Filt Rate 58; Glucose 92 mg/dL (65-110); Potassium 4.3 mmol/L (3.4-5.0); Sodium 138 mmol/L (137-145)
[2023-06-14] MEDS: TAMSULOSIN HCL 0.4 MG CAPSULE PO (08:24)
[2023-06-14] MEDS: busPIRone HCL 2.5 MG TABLET PO ×2 (08:31→16:42)
[2023-06-14] MEDS: APIXABAN 5 MG TABLET PO ×2 (08:31→21:10)
[2023-06-14] MEDS: busPIRone HCL 10 MG TABLET 20 MG PO ×2 (08:31→16:42)
[2023-06-14] MEDS: dilTIAZem HCL CD 180 MG CAP.24HR PO (08:33)
--- NOTE | 2023-06-14 09:30 | P.PNIM_ITS ---
Progress Note: A&P Assessment and Plan (1) Syncope and collapse: Code(s): R55 - Syncope and collapse Status: Acute (2) Posadas catheter in place on admission: Code(s): Z97.8 - Presence of other specified devices Status: Acute (3) FLOWER (acute kidney injury): Code(s): N17.9 - Acute kidney failure, unspecified Status: Acute Plan Problem List 1. Syncope and collapse * EKG impression ATRIAL FIBRILLATION Echocardiogram April 08, 2023 shows normal EF, no significant valvular disease * CXR Impression 1: No acute cardiopulmonary disease. * Troponin negative x2 * DD: vagal response due to pain, bradycardia. Less likely ACS, CVA, hypotension * BNP decreased from prior: 712, previously 989 on 04/07/23 * Order a carotid Doppler, no significant stenosis * consult cardiology given afib and needs to rule out cardiogenic syncope 2. Posadas catheter in place on admission * Posadas in place due to urinary retention, appointment today to discontinue per patient * Continue home tamsulosin * Consult urology for assessment of discontinuation, patient reporting pain at meatus * Folic acid there is removed, monitor input output 3. FLOWER on CKD * Creatinine currently 1.7, previously 1.3 on 06/06 * BUN currently 39, previously 53 on 06/06 * 500 mL bolus of NS in ED * Continue normal saline IV 100 mL/hour * . Creatinine trending down UTI * UA: Cloudy, 2+ protein, 1+ ketone, 3+ blood, 1+ bilirubin, 1+ leuk, greater than 100 RBC, 21-50 WBC. * UC no growth, previously grew aerococcus urinae in 2020 and enterococcus species in 2018 * WBC WNL, trend CBC and BMP s/w ceftriaxone 1 g IV daily Chronic Conditions -continue home Tylenol p.r.n., BuSpar -AFib: continue home med -Eliquis, diltiazem. -HTN: Continue home medication - lisinopril -DISH: Continue home medication - gabapentin, meloxicam Diet: Heart healthy GI Prophylaxis: Not currently indicated DVT Prophylaxis: SCDs, currently on Eliquis Lines: pIV Code Status: Full Code Subjective Date/time seen: 06/14/23 09:30 Interval history: I saw and examined patient today, patient denies dizziness, chest pain, palpitation, a pain, nausea vomiting diarrhea dysuria Exam Narrative: GENERAL: Pleasant, in no acute distress. Well-nourished. - EYES: EOMI. Anicteric. - HENT: Moist mucous membranes. - LUNGS: Clear to auscultation bilateral ly, no wheezing, rhonchi, or rales. - CARDIOVASCULAR: Regular rate and rhyth m. No murmur. No JVD. - ABDOMEN: Soft, non-tender and non-dist ended. No palpable masses. - EXTREMITIES: No edema. Peripheral puls es 2+. Non-tender. - NEUROLOGIC: No focal neurological defi cits. CN II-XII grossly intact. - PSYCHIATRIC: Awake, Alert and oriented x 3. Appropriate mood and affect. - SKIN: No rashes or lesions. Warm. - LYMPH: No cervical lymphadenopathy. Objective Data Vital Signs Vital Signs: Vital Signs - 24 hr 06/13/23 14:00 06/13/23 12:00 06/13/23 16:00 Temperature 97.6 F Pulse Rate 81 86 77 Respir
--- NOTE | 2023-06-14 09:30 | PM.IMPN ---
Progress Note: A&P Assessment and Plan (1) Syncope and collapse: Code(s): R55 - Syncope and collapse Status: Acute (2) Posadas catheter in place on admission: Code(s): Z97.8 - Presence of other specified devices Status: Acute (3) FLOWER (acute kidney injury): Code(s): N17.9 - Acute kidney failure, unspecified Status: Acute Plan Problem List 1. Syncope and collapse EKG impression ATRIAL FIBRILLATION Echocardiogram April 08, 2023 shows normal EF, no significant valvular disease CXR Impression 1: No acute cardiopulmonary disease. Troponin negative x2 DD: vagal response due to pain, bradycardia. Less likely ACS, CVA, hypotension BNP decreased from prior: 712, previously 989 on 04/07/23 Order a carotid Doppler, no significant stenosis consult cardiology given afib and needs to rule out cardiogenic syncope 2. Posadas catheter in place on admission Posadas in place due to urinary retention, appointment today to discontinue per patient Continue home tamsulosin Consult urology for assessment of discontinuation, patient reporting pain at meatus Folic acid there is removed, monitor input output 3. FLOWER on CKD Creatinine currently 1.7, previously 1.3 on 06/06 BUN currently 39, previously 53 on 06/06 500 mL bolus of NS in ED Continue normal saline IV 100 mL/hour . Creatinine trending down UTI UA: Cloudy, 2+ protein, 1+ ketone, 3+ blood, 1+ bilirubin, 1+ leuk, greater than 100 RBC, 21-50 WBC. UC no growth, previously grew aerococcus urinae in 2020 and enterococcus species in 2018 WBC WNL, trend CBC and BMP s/w ceftriaxone 1 g IV daily Chronic Conditions -continue home Tylenol p.r.n., BuSpar -AFib: continue home med -Eliquis, diltiazem. -HTN: Continue home medication - lisinopril -DISH: Continue home medication - gabapentin, meloxicam Diet: Heart healthy GI Prophylaxis: Not currently indicated DVT Prophylaxis: SCDs, currently on Eliquis Lines: pIV Code Status: Full Code Subjective Date/time seen: 06/14/23 09:30 Interval history: I saw and examined patient today, patient denies dizziness, chest pain, palpitation, a pain, nausea vomiting diarrhea dysuria Exam Narrative: GENERAL: Pleasant, in no acute distress. Well-nourished. - EYES: EOMI. Anicteric. - HENT: Moist mucous membranes. - LUNGS: Clear to auscultation bilaterally, no wheezing, rhonchi, or rales. - CARDIOVASCULAR: Regular rate and rhythm. No murmur. No JVD. - ABDOMEN: Soft, non-tender and non-distended. No palpable masses. - EXTREMITIES: No edema. Peripheral pulses 2+. Non-tender. - NEUROLOGIC: No focal neurological deficits. CN II-XII grossly intact. - PSYCHIATRIC: Awake, Alert and oriented x 3. Appropriate mood and affect. - SKIN: No rashes or lesions. Warm. - LYMPH: No cervical lymphadenopathy. Objective Data Vital Signs Vital Signs: Vital Signs - 24 hr 06/13/23 14:00 06/13/23 12:00 06/13/23 16:00 Temperature 97.6 F Pulse Rate 81 86 77 Respiratory Rate 18 Blood Pressure 126/74 Pulse Oximetry 98 Oxygen Delivery 06/13/23 21:03 06/13/23 20:35 06/13/23 20:35 Temperature 97.9 F Pulse Rate 84 80 Respiratory Rate 16 Blood Pressure 134/90 Pulse Oximetry 99 Oxygen Delivery Room Air 06/14/23 00:00 06/14/23 04:00 06/14/23 04:50 Temperature 97.2 F L Pulse Rate 73 90 84 Respiratory Rate 16 Blood Pressure 146/89 H Pulse Oximetry 98 Oxygen Delivery Intake/Output Intake/Output: Intake & Output 06/11/23 06/12/23 06/13/23 06/14/23 23:59 23:59 23:59 23:59 Intake Total 037 249 4207 Output Total 2850 1300 Balance 500 -2100 -300 Meds/Results Medications: Active Medications Generic Name Dose Route Start Last Admin Trade Name Freq PRN Reason Stop Dose Admin Acetaminophen 650 mg 06/13/23 00:24 Acetaminophen 325 Mg Tablet PO Q6H PRN Mild Pain (1-3) Or Fever Apixaban 5 mg 06/13/23 09:00 06/14/23 08:31
[2023-06-14] MEDS: ACETAMINOPHEN 325 MG TABLET 650 MG PO (10:18)
--- NOTE | 2023-06-14 12:51 | WPDUROPN2 ---
Progress Note: A&P Assessment and Plan (1) FLOWER (acute kidney injury): Code(s): N17.9 - Acute kidney failure, unspecified Status: Acute (2) BPH w urinary obs/LUTS: Code(s): N40.1 - Benign prostatic hyperplasia with lower urinary tract symptoms; N13.8 - Other obstructive and reflux uropathy Status: Acute (3) Urinary retention: Code(s): R33.9 - Retention of urine, unspecified Status: Acute Assessment and Plan: trial of voiding on tamsulosin Urolift in past Plan Posadas if not able to void cult neg Subjective Subjective Date/Time Seen: 06/14/23 12:51 Interval history: Plan trial of voiding cult neg Retention history noted Exam : General: Yes bladder normal to palpation and Yes no CVA tenderness Objective Data Vital Signs Vital Signs: Vital Signs - 24 hr 06/13/23 14:00 06/13/23 16:00 06/13/23 21:03 Temperature 36.4 C 36.6 C Pulse Rate 81 77 84 Respiratory Rate 18 16 Blood Pressure 126/74 134/90 Pulse Oximetry 98 99 Oxygen Delivery 06/13/23 20:35 06/13/23 20:35 06/14/23 00:00 Temperature Pulse Rate 80 73 Respiratory Rate Blood Pressure Pulse Oximetry Oxygen Delivery Room Air 06/14/23 04:00 06/14/23 04:50 06/14/23 08:15 Temperature 36.2 C L Pulse Rate 90 84 Respiratory Rate 16 Blood Pressure 146/89 H Pulse Oximetry 98 Oxygen Delivery Room Air 06/14/23 08:45 Temperature Pulse Rate Respiratory Rate Blood Pressure Pulse Oximetry Oxygen Delivery Room Air Intake/Output Intake/Output: Intake & Output 06/11/23 06/12/23 06/13/23 06/14/23 23:59 23:59 23:59 23:59 Intake Total 861 656 5527 Output Total 2850 1300 Balance 500 -2100 -60 Meds/Results Medications: Active Medications Generic Name Dose Route Start Last Admin Trade Name Freq PRN Reason Stop Dose Admin Acetaminophen 650 mg 06/13/23 00:24 06/14/23 10:18 Acetaminophen 325 Mg Tablet PO 650 mg Q6H PRN Administration Mild Pain (1-3) Or Fever Hydrocodone Bitart/Acetaminophen 1 tab 06/14/23 11:28 Hydrocodone/Acetaminophen (*Crx) 5-325 Mg Tablet PO Q4H PRN Pain Rated 4-6 Apixaban 5 mg 06/13/23 09:00 06/14/23 08:31 Apixaban 5 Mg Tablet PO 5 mg Q12HR DENNIS Administration Buspirone HCl 2.5 mg 06/13/23 09:00 06/14/23 08:31 Buspirone Hcl 2.5 Mg Tablet PO 2.5 mg BID DENNIS Administration Buspirone HCl 20 mg 06/13/23 09:00 06/14/23 08:31 Buspirone Hcl 10 Mg Tablet PO 20 mg BID DENNIS Administration Diltiazem HCl 180 mg 06/13/23 09:00 06/14/23 08:33 Diltiazem Hcl Cd 180 Mg Cap.24hr PO 180 mg QAM DENNIS Administration Gabapentin 600 mg 06/13/23 09:00 Gabapentin 300 Mg Capsule PO DAILY DENNIS Ceftriaxone Sodium 1 gm in 50 mls @ 100 mls/hr 06/13/23 11:00 06/14/23 10:12 Rocephin 1 Gm/Ns 50 Ml IVPB 100 mls/hr Q24H DENNIS Administration Sodium Chloride 1,000 mls @ 100 mls/hr 06/13/23 15:10 06/14/23 10:20 Normal Saline Iv IV CONT Not Given .Q10H DENNIS Lisinopril 20 mg 06/13/23 21:00 06/13/23 20:35 Lisinopril 20 Mg Tablet PO 20 mg QHS DENNIS Administration Meloxicam 7.5 mg 06/13/23 00:24 Meloxicam 7.5 Mg Tablet PO BID PRN Pain Miscellaneous Information 0 each 06/13/23 00:01 06/14/23 10:21 Gabapentin External Med Record Shows Pt Takes 600mg Qam And XX 07/13/23 00:00 Not Given CLARIFY DENNIS Miscellaneous Information 0 each 06/13/23 00:01 06/14/23 10:21 Meloxicam Clarify Pain Scale Pt Already Has Apap Prn 1-3 XX 07/13/23 00:00 Not Given CLARIFY DENNIS Tamsulosin HCl 0.4 mg 06/13/23 09:00 06/14/23 08:24 Tamsulosin Hcl 0.4 Mg Capsule PO 0.4 mg DAILY DENNIS Administration Radiology Results: ITS Impressions Chest X-Ray 06/12/23 14:15 Impression: 1: No acute cardiopulmonary disease. Carotid Doppler Study 06/13/23 12:38 IMPRESSION: 1. <50% stenosis in the right internal carotid arter
[2023-06-14] MEDS: HYDROcodone/acetaminophen (*CRX) 5-325 MG TABLET 1 TAB PO ×2 (13:59→18:29)
[2023-06-14] MEDS: lisinopriL 20 MG TABLET PO (21:10)
[2023-06-14] MEDS: MELATONIN 5 MG TABLET PO (21:10)
[2023-06-15] VITALS: PULSE 78
[2023-06-15 04:00] VITALS: PULSE 91
[2023-06-15 04:49] VITALS: BP 162/108; PULSE 93; RESP 16; TEMP 36.7; O2SAT 96
[2023-06-15 05:02] VITALS: BP 160/106
[2023-06-15] MEDS: SODIUM CHLORIDE 0.9% IV 1,000 ML 100 ML IV CONT (06:14)
--- NOTE | 2023-06-15 08:33 | P.PNIM_ITS ---
Progress Note: A&P Assessment and Plan (1) Syncope and collapse: Code(s): R55 - Syncope and collapse Status: Acute (2) Posadas catheter in place on admission: Code(s): Z97.8 - Presence of other specified devices Status: Acute (3) FLOWER (acute kidney injury): Code(s): N17.9 - Acute kidney failure, unspecified Status: Acute Plan Problem List 1. Syncope and collapse * EKG impression ATRIAL FIBRILLATION Echocardiogram April 08, 2023 shows normal EF, no significant valvular disease * CXR Impression 1: No acute cardiopulmonary disease. * Troponin negative x2 * DD: vagal response due to pain, bradycardia. Less likely ACS, CVA, hypotension * BNP decreased from prior: 712, previously 989 on 04/07/23 * Order a carotid Doppler, no significant stenosis * consult cardiology given afib and needs to rule out cardiogenic syncope. field hockey and lacrosse coach does not consider patient has a cardiogenic syncope, recommends patient to see field hockey and lacrosse coach in [place] * No blood pressure stable, rate controlled 2. Posadas catheter in place on admission * Posadas in place due to urinary retention, appointment today to discontinue per patient * Continue home tamsulosin * Consult urology for assessment of discontinuation, patient reporting pain at meatus * Folic acid there is removed, monitor input output * Patient does not have urinary retention after removal of the folic beatriz 3. FLOWER on CKD * Creatinine currently 1.7, previously 1.3 on 06/06 * BUN currently 39, previously 53 on 06/06 * 500 mL bolus of NS in ED * Continue normal saline IV 100 mL/hour * . Creatinine trending down UTI * UA: Cloudy, 2+ protein, 1+ ketone, 3+ blood, 1+ bilirubin, 1+ leuk, greater than 100 RBC, 21-50 WBC. * UC no growth, previously grew aerococcus urinae in 2020 and enterococcus species in 2019 * WBC WNL, trend CBC and BMP s/w ceftriaxone 1 g IV daily Urine culture does not have growth of bacteria Right groin pain Had a fall [address] scan today showed no fracture Optimize pain management Chronic Conditions -continue home Tylenol p.r.n., BuSpar -AFib: continue home med -Eliquis, diltiazem. -HTN: Continue home medication - lisinopril -DISH: Continue home medication - gabapentin, meloxicam Diet: Heart healthy GI Prophylaxis: Not currently indicated DVT Prophylaxis: SCDs, currently on Eliquis Lines: pIV Code Status: Full Code Subjective Date/time seen: 06/15/23 08:33 Interval history: I saw exam patient today. Patient denies dysuria, urgency frequency, but has right groin pain. Patient stated he had a fall about 2 weeks ago. Patient denies headache, dizziness, palpitation. Exam Narrative: GENERAL: Pleasant, in no acute distress. Well-nourished. - EYES: EOMI. Anicteric. - HENT: Moist mucous membranes. - LUNGS: Clear to auscultation bilateral ly, no wheezing, rhonchi, or rales. - CARDIOVASCULAR: Regular rate and rhyth m. No murmur. No JVD. - ABDOMEN: Soft, non-tender and non-dist ended. No palpable masses. - EXTREMITIES: No edema. Peripheral puls es 2+. Non-tender. Right lower tender by palpation, no mass - NEUROLOGIC: No focal neurological defi cits. CN II-XII grossly intact.
--- NOTE | 2023-06-15 08:33 | PM.IMPN ---
Progress Note: A&P Assessment and Plan (1) Syncope and collapse: Code(s): R55 - Syncope and collapse Status: Acute (2) Posadas catheter in place on admission: Code(s): Z97.8 - Presence of other specified devices Status: Acute (3) FLOWER (acute kidney injury): Code(s): N17.9 - Acute kidney failure, unspecified Status: Acute Plan Problem List 1. Syncope and collapse EKG impression ATRIAL FIBRILLATION Echocardiogram April 08, 2023 shows normal EF, no significant valvular disease CXR Impression 1: No acute cardiopulmonary disease. Troponin negative x2 DD: vagal response due to pain, bradycardia. Less likely ACS, CVA, hypotension BNP decreased from prior: 712, previously 989 on 04/07/23 Order a carotid Doppler, no significant stenosis consult cardiology given afib and needs to rule out cardiogenic syncope. agent ticketing gate does not consider patient has a cardiogenic syncope, recommends patient to see agent ticketing gate in [place] No blood pressure stable, rate controlled 2. Posadas catheter in place on admission Posadas in place due to urinary retention, appointment today to discontinue per patient Continue home tamsulosin Consult urology for assessment of discontinuation, patient reporting pain at meatus Folic acid there is removed, monitor input output Patient does not have urinary retention after removal of the folic beatriz 3. FLOWER on CKD Creatinine currently 1.7, previously 1.3 on 06/06 BUN currently 39, previously 53 on 06/06 500 mL bolus of NS in ED Continue normal saline IV 100 mL/hour . Creatinine trending down UTI UA: Cloudy, 2+ protein, 1+ ketone, 3+ blood, 1+ bilirubin, 1+ leuk, greater than 100 RBC, 21-50 WBC. UC no growth, previously grew aerococcus urinae in 2020 and enterococcus species in 2018 WBC WNL, trend CBC and BMP s/w ceftriaxone 1 g IV daily Urine culture does not have growth of bacteria Right groin pain Had a fall [address] scan today showed no fracture Optimize pain management Chronic Conditions -continue home Tylenol p.r.n., BuSpar -AFib: continue home med -Eliquis, diltiazem. -HTN: Continue home medication - lisinopril -DISH: Continue home medication - gabapentin, meloxicam Diet: Heart healthy GI Prophylaxis: Not currently indicated DVT Prophylaxis: SCDs, currently on Eliquis Lines: pIV Code Status: Full Code Subjective Date/time seen: 06/15/23 08:33 Interval history: I saw exam patient today. Patient denies dysuria, urgency frequency, but has right groin pain. Patient stated he had a fall about 2 weeks ago. Patient denies headache, dizziness, palpitation. Exam Narrative: GENERAL: Pleasant, in no acute distress. Well-nourished. - EYES: EOMI. Anicteric. - HENT: Moist mucous membranes. - LUNGS: Clear to auscultation bilaterally, no wheezing, rhonchi, or rales. - CARDIOVASCULAR: Regular rate and rhythm. No murmur. No JVD. - ABDOMEN: Soft, non-tender and non-distended. No palpable masses. - EXTREMITIES: No edema. Peripheral pulses 2+. Non-tender. Right lower tender by palpation, no mass - NEUROLOGIC: No focal neurological deficits. CN II-XII grossly intact. - PSYCHIATRIC: Awake, Alert and oriented x 3. Appropriate mood and affect. - SKIN: No rashes or lesions. Warm. - LYMPH: No cervical lymphadenopathy. Objective Data Vital Signs Vital Signs: Vital Signs - 24 hr 06/14/23 08:45 06/14/23 14:00 06/14/23 12:00 Temperature 97.4 F L Pulse Rate 82 100 Respiratory Rate 14 Blood Pressure 142/82 H Pulse Oximetry 100 Oxygen Delivery Room Air 06/14/23 16:00 06/14/23 20:40 06/15/23 00:00 Temperature 97.2 F L Pulse Rate 94 98 78 Respiratory Rate 16 Blood Pressure 148/95 H Pulse Oximetry 99 Oxygen Delivery 06/15/23 04:00 06/15/23 04:49 06/15/23 05:02 Temperature 98.1 F Pulse Rate 91 93 Respiratory Rate 16 Blood Pressure 162/108 H 160/106 H Pulse Oximetry 96 Oxygen Del
[2023-06-15] MEDS: busPIRone HCL 10 MG TABLET 20 MG PO (08:46)
[2023-06-15] MEDS: TAMSULOSIN HCL 0.4 MG CAPSULE PO (08:46)
[2023-06-15] MEDS: busPIRone HCL 2.5 MG TABLET PO (08:47)
[2023-06-15] MEDS: dilTIAZem HCL CD 180 MG CAP.24HR PO (08:47)
[2023-06-15] MEDS: APIXABAN 5 MG TABLET PO (08:47)
[2023-06-15] MEDS: HYDROcodone/acetaminophen (*CRX) 5-325 MG TABLET 1 TAB PO (10:15)
[2023-06-15 12:00] VITALS: PULSE 103
--- NOTE | 2023-06-15 13:16 | WPDUROPN2 ---
Progress Note: A&P Assessment and Plan (1) Urinary retention: Code(s): R33.9 - Retention of urine, unspecified Status: Acute (2) FLOWER (acute kidney injury): Code(s): N17.9 - Acute kidney failure, unspecified Status: Acute (3) Posadas catheter in place on admission: Code(s): Z97.8 - Presence of other specified devices Status: Acute Subjective Subjective Date/Time Seen: 06/15/23 13:16 Interval history: Pt. voiding well s/p cath removal. Remains on tamsulosin. Urine culture negative. He will f/u with urology in [place]. Review of Systems Cardiovascular: Cardiovascular: Denies chest pain Respiratory: Respiratory: Reports no additional respiratory complaints Gastrointestinal: Gastrointestinal: Denies abdominal pain, Denies nausea and Denies vomiting Genitourinary: Genitourinary: Denies hematuria, Denies genital pain, Denies dysuria, Denies flank pain, Denies urinary frequency, Denies urinary hesitancy, Denies urinary incontinence and Denies urinary urgency Exam Const: General: cooperative and comfortable Resp: Effort & Inspection: normal respiratory effort Cardio: Rate: tachycardic GI: GI Palp: Yes Soft to palpation and No Tenderness to palpation present (GI) : General: Yes no CVA tenderness Objective Data Vital Signs Vital Signs: Vital Signs - 24 hr 06/14/23 14:00 06/14/23 16:00 06/14/23 20:40 Temperature 97.4 F L 97.2 F L Pulse Rate 82 94 98 Respiratory Rate 14 16 Blood Pressure 142/82 H 148/95 H Pulse Oximetry 100 99 Oxygen Delivery 06/15/23 00:00 06/15/23 04:00 06/15/23 04:49 Temperature 98.1 F Pulse Rate 78 91 93 Respiratory Rate 16 Blood Pressure 162/108 H Pulse Oximetry 96 Oxygen Delivery 06/15/23 05:02 06/15/23 08:40 06/15/23 12:00 Temperature Pulse Rate 103 H Respiratory Rate Blood Pressure 160/106 H Pulse Oximetry Oxygen Delivery Room Air Intake/Output Intake/Output: Intake & Output 06/12/23 06/13/23 06/14/23 06/15/23 23:59 23:59 23:59 23:59 Intake Total 804 602 3221 1220 Output Total 2850 1700 1250 Balance 500 -2100 930 -30 Meds/Results Medications: Active Medications Generic Name Dose Route Start Last Admin Trade Name Freq PRN Reason Stop Dose Admin Acetaminophen 650 mg 06/13/23 00:24 06/14/23 10:18 Acetaminophen 325 Mg Tablet PO 650 mg Q6H PRN Administration Mild Pain (1-3) Or Fever Hydrocodone Bitart/Acetaminophen 1 tab 06/14/23 11:28 06/15/23 10:15 Hydrocodone/Acetaminophen (*Crx) 5-325 Mg Tablet PO 1 tab Q4H PRN Administration Pain Rated 4-6 Apixaban 5 mg 06/13/23 09:00 06/15/23 08:47 Apixaban 5 Mg Tablet PO 5 mg Q12HR DENNIS Administration Buspirone HCl 2.5 mg 06/13/23 09:00 06/15/23 08:47 Buspirone Hcl 2.5 Mg Tablet PO 2.5 mg BID DENNIS Administration Buspirone HCl 20 mg 06/13/23 09:00 06/15/23 08:46 Buspirone Hcl 10 Mg Tablet PO 20 mg BID DENNIS Administration Diltiazem HCl 180 mg 06/13/23 09:00 06/15/23 08:47 Diltiazem Hcl Cd 180 Mg Cap.24hr PO 180 mg QAM DENNIS Administration Gabapentin 600 mg 06/15/23 17:00 Gabapentin 300 Mg Capsule PO BID DENNIS Ceftriaxone Sodium 1 gm in 50 mls @ 100 mls/hr 06/13/23 11:00 06/15/23 10:16 Rocephin 1 Gm/Ns 50 Ml IVPB 100 mls/hr Q24H DENNIS Administration Sodium Chloride 1,000 mls @ 100 mls/hr 06/13/23 15:10 06/15/23 06:14 Normal Saline Iv IV CONT 100 mls/hr .Q10H DENNIS Administration Lisinopril 20 mg 06/13/23 21:00 06/14/23 21:10 Lisinopril 20 Mg Tablet PO 20 mg QHS DENNIS Administration Melatonin 5 mg 06/14/23 21:00 06/14/23 21:10 Melatonin 5 Mg Tablet PO 5 mg HS DENNIS Administration Meloxicam 7.5 mg 06/13/23 00:24 Meloxicam 7.5 Mg Tablet PO BID PRN Pain Miconazole Nitrate 1 applic 06/15/23 10:00 06/15/23 12:11 Miconazole 2% Antifungal Ointment 56 Gm TOPICAL 1 applic Q12HR DENNIS Administ
--- NOTE | 2023-06-15 14:22 | P.DS_ITS ---
DS: Admitting Diagnosis Discharge Date 06/15/23 Admitting Diagnosis ?Code(s): R55 - Syncope and collapse ?Status:?Acute (2) Posadas catheter in place on admission: ?Code(s): Z97.8 - Presence of other specified devices ?Status:?Acute (3) FLOWER (acute kidney injury): ?Code(s): N17.9 - Acute kidney failure, unspecified ?Status:?Acute DS: Discharge Diagnosis Discharge Diagnosis (1) Syncope and collapse: Code(s): R55 - Syncope and collapse Status: Acute (2) Posadas catheter in place on admission: Code(s): Z97.8 - Presence of other specified devices Status: Acute (3) FLOWER (acute kidney injury): Code(s): N17.9 - Acute kidney failure, unspecified Status: Acute DS: Summary Hospital Course Hospital Course: Per H&P,82 y/o M presents here with syncope with PMH of A-Fib, Urinary Retention, CKD, basal cell carcinoma, and DISH. Patient presents here after syncopal episode while waiting for urology appointment.? Patient reports sitting in the waiting room when he became unresponsive.? Per bystander report, patient slumped over and did not wake up to multiple times of stimuli.? Staff was alerted and they were able to move patient to the floor, unable to palpate a pulse, compressions initiated and patient woke up.? However patient does not remember events, reports remembering sitting in the waiting room and then waking to EMS moving him over to the stretcher.? No chest pain, shortness a breath, stroke-like symptoms, recent illness, N/V/D, or changes to medications.? Patient is continuing to endorse some mild confusion, difficulty remembering events.? He is concerned he passed out due to pain of Posadas and getting worked up .? One similar episode approximately approved ago.? Workup did not reveal anything.? Patient has not worn an event monitor.? Does report having increased fatigue over the last few weeks to months.? He denies any recent weight loss or night sweats. The following medical issues have been addressed during the hospitalization 1. Syncope and collapse * EKG impression ATRIAL FIBRILLATION Echocardiogram April 08, 2023 shows normal EF, no significant valvular disease * CXR Impression 1: No acute cardiopulmonary disease. * Troponin negative x2 * DD: vagal response due to pain, bradycardia. Less likely ACS, CVA, hypotension * BNP decreased from prior: 712, previously 989 on 04/07/23 * Order a carotid Doppler, no significant stenosis * consult cardiology given afib and needs to rule out cardiogenic syncope. chairman does not consider patient has a cardiogenic syncope, recommends patient to see chairman in [place] * No blood pressure stable, rate controlled 2. Posadas catheter in place on admission * Posadas in place due to urinary retention, appointment today to discontinue per patient * Continue home tamsulosin * Consult urology for assessment of discontinuation, patient reporting pain at meatus * Folic acid there is removed, monitor input output * Patient does not have urinary retention after removal of the Posadas catheter. Urologist recommend patient to see urologist in [place] 3. FLOWER on CKD * Creatinine currently 1.7, previously 1.3 on 06/06 * BUN currently 39, previously 53 on 06/06 * 500 mL bolus of NS in ED * Continue normal saline IV 100 mL/hour * . Creatinine trending down, BUN 22, creatinine 1.2 yesterday UTI * UA: Cloudy, 2+ protein, 1+ ketone, 3+ blood, 1+ bilirubin, 1+ leuk, greater than 100 RBC, 21-50 WBC. * UC no growth, previously grew aerococcus urinae in 2020 and enterococcus
--- NOTE | 2023-06-15 14:22 | PM.DS ---
DS: Admitting Diagnosis Discharge Date 06/15/23 Admitting Diagnosis ?Code(s): R55 - Syncope and collapse ?Status:?Acute (2) Posadas catheter in place on admission: ?Code(s): Z97.8 - Presence of other specified devices ?Status:?Acute (3) FLOWER (acute kidney injury): ?Code(s): N17.9 - Acute kidney failure, unspecified ?Status:?Acute DS: Discharge Diagnosis Discharge Diagnosis (1) Syncope and collapse: Code(s): R55 - Syncope and collapse Status: Acute (2) Posadas catheter in place on admission: Code(s): Z97.8 - Presence of other specified devices Status: Acute (3) FLOWER (acute kidney injury): Code(s): N17.9 - Acute kidney failure, unspecified Status: Acute DS: Summary Hospital Course Hospital Course: Per H&P,82 y/o M presents here with syncope with PMH of A-Fib, Urinary Retention, CKD, basal cell carcinoma, and DISH. Patient presents here after syncopal episode while waiting for urology appointment.? Patient reports sitting in the waiting room when he became unresponsive.? Per bystander report, patient slumped over and did not wake up to multiple times of stimuli.? Staff was alerted and they were able to move patient to the floor, unable to palpate a pulse, compressions initiated and patient woke up.? However patient does not remember events, reports remembering sitting in the waiting room and then waking to EMS moving him over to the stretcher.? No chest pain, shortness a breath, stroke-like symptoms, recent illness, N/V/D, or changes to medications.? Patient is continuing to endorse some mild confusion, difficulty remembering events.? He is concerned he passed out due to pain of Posadas and getting worked up .? One similar episode approximately approved ago.? Workup did not reveal anything.? Patient has not worn an event monitor.? Does report having increased fatigue over the last few weeks to months.? He denies any recent weight loss or night sweats. The following medical issues have been addressed during the hospitalization 1. Syncope and collapse EKG impression ATRIAL FIBRILLATION Echocardiogram April 08, 2023 shows normal EF, no significant valvular disease CXR Impression 1: No acute cardiopulmonary disease. Troponin negative x2 DD: vagal response due to pain, bradycardia. Less likely ACS, CVA, hypotension BNP decreased from prior: 712, previously 989 on 04/07/23 Order a carotid Doppler, no significant stenosis consult cardiology given afib and needs to rule out cardiogenic syncope. counter clerk [employer] does not consider patient has a cardiogenic syncope, recommends patient to see counter clerk [employer] in [place] No blood pressure stable, rate controlled 2. Posadas catheter in place on admission Posadas in place due to urinary retention, appointment today to discontinue per patient Continue home tamsulosin Consult urology for assessment of discontinuation, patient reporting pain at meatus Folic acid there is removed, monitor input output Patient does not have urinary retention after removal of the Posadas catheter. Urologist recommend patient to see urologist in [place] 3. FLOWER on CKD Creatinine currently 1.7, previously 1.3 on 06/06 BUN currently 39, previously 53 on 06/06 500 mL bolus of NS in ED Continue normal saline IV 100 mL/hour . Creatinine trending down, BUN 22, creatinine 1.2 yesterday UTI UA: Cloudy, 2+ protein, 1+ ketone, 3+ blood, 1+ bilirubin, 1+ leuk, greater than 100 RBC, 21-50 WBC. UC no growth, previously grew aerococcus urinae in 2020 and enterococcus species in 2019 WBC WNL, trend CBC and BMP Received ceftriaxone 1 g IV daily Urine culture does not have growth of bacteria Right groin pain Had a fall [address] scan today showed no fracture Optimize pain management Chronic Conditions -continue home Tylenol p.r.n., BuSpar -AFib: continue home med -Eliquis, diltiazem. -HTN: Continue home medication - lisinopril -DISH: Continu
== END 2023-06-15 13:40 | disposition home or self-care (01) | DRG 312 ==
LOC: ANHED 13:28 → ANH3MEDSUR 17:13
PROVIDERS: Emergency Medicine; Student in an Organized Health Care Education/Training Program; Admitting Provider Hospitalist; Emergency Provider Emergency Medicine; PCP Family Medicine; Visit Provider Hospitalist
DX: R55 Syncope and collapse (principal); N17.9 Acute kidney failure, unspecified; I48.20 Chronic atrial fibrillation, unspecified; N13.8 Other obstructive and reflux uropathy; N40.1 Benign prostatic hyperplasia with lower urinary tract symptoms; R33.9 Retention of urine, unspecified; R33.8 Other retention of urine; M48.10 Ankylosing hyperostosis [Forestier], site unspecified; M19.90 Unspecified osteoarthritis, unspecified site; F41.1 Generalized anxiety disorder; I12.9 Hypertensive chronic kidney disease with stage 1 through stage 4 chronic kidney disease, or unspecified chronic kidney disease; N18.30 Chronic kidney disease, stage 3 unspecified; I70.0 Atherosclerosis of aorta; M17.10 Unilateral primary osteoarthritis, unspecified knee; Z85.828 Personal history of other malignant neoplasm of skin; Z86.718 Personal history of other venous thrombosis and embolism; Z79.01 Long term (current) use of anticoagulants; R10.30 Lower abdominal pain, unspecified; W19.XXXA Unspecified fall, initial encounter
CPT/HCPCS: 36415; 71045; 72192; 80048; 80053; 81001; 83735; 83880; 84484; 85025; 85027; 87086; 93005; 93880; 96361; 97110; 97161; 97165; 97530; 97535; 99285; A9270; G0378; J0696; J7030; J7040